=== PATIENT | male | born 1970 | race Caucasian/White ===

== ENCOUNTER 2019-10-01 08:23 | Day surgery (SDC) | payer OTHER ==
--- OUTSIDE RECORDS SUMMARY | 2019-10-01 08:25 | XMS REPORT ---
:1970 [facility] Address [address] [place] [address] [address] [place] [address] Care Team Providers Name Role Phone Unavailable Unavailable Unavailable Payers Payer Name Policy Type Policy Number Effective Date Expiration Date Problems This patient has no known problems. Allergies, Adverse Reactions, Alerts Allergy Name Allergy Status Severity Reaction(s) Onset Inactive Treating Comments Type Date Date Clinician No Known Drug DA Active U Allergies 8-15 00:00: 00 coconut FA Active MO 8-15 00:00: 00 No Known Drug DA Active U Allergies 7-17 00:00: 00 coconut DA Active MO 7-17 00:00: 00 coconut FA Active MO 03-12 00:00: 00 No Known DA Active U 2007-08 Contrast - Allergies 00:00: 00 No Known Drug DA Active U 2007-08 Allergies 09-02 00:00: 00 No Known Food DA Active U 2007-08 Allergies 09-02 00:00: 00 No Known Other DA Active U 2007-08 Allergies 09-02 00:00: 00 No Known Drug DA Active U Intolerances 04-30 00:00: 00 Medications This patient has no known medications. Results Test Description Test Time Test Comments Text Results Atomic Results Result Comments - XR SPINE 1 V SPEC LEVEL 2019-04-13 10:34:00 Patient Name: BRIANNE CARLISLE Unit No: [id number] EXAMS: CPT CODE: [id number] XR SPINE 1 V SPEC LEVEL 78941 3 LATERAL INTRAOPERATIVE VIEWS OF THE LUMBAR SPINE Image 1: Surgical instrumentation is centered at the L4-L5 level Image 2: In progress L4-L5 posterior instrumented fusion without evidence of complication. Image 3: L4-L5 posterior instrumented fusion is seen without evidence of complication. at 1034 Reported and signed by: Salomón Berger M.D. CC: Chayo Ribeiro M.D. Technologist: LEX [place], RT(R) Transcribed D/ (1034) [email or web address]: BRIANNE CARLISLE [address] [facility] PHYS: Alvaro Freitas MD : 1970 AGE: 48 SEX: M [place] [address] LOC: Y.508 A PHONE #: [phone] EXAM DATE: 04/10/2019 STATUS: ADM IN FAX #: [phone] RAD #: [id number] D/C DT PAGE 1 Signed Report Patient Name: BRIANNE CARLISLE Unit No: [id number] EXAMS: CPT CODE: [id number] XR SPINE 1 V SPEC LEVEL 63408 <Continued> Orig Print D/T: S: 04/13/2019 (1037) [facility] [place] [place] [facility] NAME: BRIANNE CARLISLE [address] [facility] [address] PHYS: Alvaro Freitas MD : 1970 AGE: 48 SEX: M [place] [address] LOC: Y.508 A PHONE #: [phone] EXAM DATE: 04/10/2019 STATUS: ADM IN FAX #: [phone] RAD #: [id number] D/C DT PAGE 2 Signed Report - XR SPINE 1 V SPEC LEVEL 2019-04-13 10:34:00 Patient Name: BRIANNE CARLISLE Unit No: [id number] EXAMS: CPT CODE: [id number] XR SPINE 1 V SPEC LEVEL 79681 3 LATERAL INTRAOPERATIVE VIEWS OF THE LUMBAR SPINE Image 1: Surgical instrumentation is centered at the L4-L5 level Image 2: In progress L4-L5 posterior instrumented fusion without evidence of complication. Image 3: L4-L5 posterior instrumented fusion is seen without evidence of complication. at 1034 Reported and signed by: Salomón Berger M.D. CC: Chayo Ribeiro M.D. Technologist: ELIZABETH RAND RT(R) Transcribed D/ (1034) [email or web address] [facility] [place] [place] [facility] NAME: BRIANNE CARLISLE [address] [facility] PHYS: Alvaro Freitas MD : 1970 AGE: 48 SEX: M [place] [address] LOC: Y.508 A PHONE #: [phone] EXAM DATE: 04/10/2019 STATUS: ADM IN FAX #: [phone] RAD #: [id number] D/C DT PAGE 1 Signed Report Patient Name: BRIANNE CARLISLE Unit No: [id number] EXAMS: CPT CODE: [id number] XR SPINE 1 V SPEC LEVEL 99091 <Continued> Orig Print D/T: S: 04/13/2019 (1037) [facility] [place] [place] [facility] NAME: BRIANNE CARLISLE [address] [facility] PHYS: Alvaro Freitas MD : 1970 AGE: 48 SEX: M [place], [place] [address] LOC: Y.508 A PHONE #: [phone] EXAM DATE: 04/10/2019 STATUS: ADM IN FAX #: [phone] RAD #: [id number] D/C DT PAGE 2 Signed Report - XR SPINE 1 V SPEC LEVEL 2019-04-13 10:34:00 Patient Name: BRIANNE CARLISLE Unit No: [id number] EXAMS: CPT CODE: [id number] XR SPINE 1 V SPEC LEVEL 17645 3 LATERAL INTRAOPERATIVE VIEWS OF THE LUMBAR SPINE Image 1: Surgical instrumentation is centered at the L4-L5 level Image 2: In progress L4-L5 posterior instrumented fusion without evidence of complication. Image 3: L4-L5 posterior instrumented fusion is seen without evidence of complication. at 1034 Reported and signed by: Salomón Berger M.D. CC: Chayo Ribeiro M.D. Technologist: ELIZABETH RAND RT(R) Transcribed D/ (1034) [email or web address] [facility] [place] [place] [facility] NAME: BRIANNE CARLISLE [address] [facility] PHYS: Alvaro Freitas MD : 1970 AGE: 48 SEX: M [place] [address] LOC: Y.508 A PHONE #: [phone] EXAM DATE: 04/10/2019 STATUS: ADM IN FAX #: [phone] RAD #: [id number] D/C DT PAGE 1 Signed Report Patient Name: BRIANNE CARLISLE Unit No: [id number] EXAMS: CPT CODE: [id number] XR SPINE 1 V SPEC LEVEL 49235 <Continued> Orig Print D/T: S: 04/13/2019 (1037) [facility] [place] [place] [facility] NAME: BRIANNE CARLISLE [address] [facility] PHYS: Alvaro Freitas MD : 1970 AGE: 48 SEX: M [place] [address] LOC: Y.508 A PHONE #: [phone] EXAM DATE: 04/10/2019 STATUS: ADM IN FAX #: [phone] RAD #: [id number] D/C DT PAGE 2 Signed Report HGB HCT 2019-04-13 07:55:00 Test Item Value Reference Range Comments HEMOGLOBIN (test code=HGB) 12.6 g/dL 10.2-14.9 HEMATOCRIT (test code=HCT) 38.3 % 31.3-44.8 HGB [id number] 07:55:00 Test Item Value Reference Range Comments HEMOGLOBIN (test code=HGB) 12.6 g/dL 10.2-14.9 HEMATOCRIT (test code=HCT) 38.3 % 31.3-44.8 HGB [id number] 07:19:00 Test Item Value Reference Range Comments HEMOGLOBIN (test code=HGB) 12.9 g/dL 08-11 CORRECTED REPORT. [place]IF[place] NURSE NAM AT [address]Previously reported result: 10.0 g/dLEdited by: DARATTT on 04/12/19:17 HEMATOCRIT (test code=HCT) 37.9 % 37 Previously reported result: 29.7 %Edited by: NATHANIEL on 04/12/19:18 HGB [id number] 07:01:00 Test Item Value Reference Range Comments HEMOGLOBIN (test code=HGB) 10.0 g/dL 08-11 HEMATOCRIT (test code=HCT) 29.7 % 37-47 BASIC METABOLIC [id number] 06:41:00 Test Item Value Reference Range Comments SODIUM (test code=NA) 138 mmol/L 136-145 POTASSIUM (test code=K) 5.1 mmol/L 3.5-5.1 CHLORIDE (test code=CL) 101.0 mmol/L 98-107 CARBON DIOXIDE (test 26.4 mmol/L 21-32 code=CO2) GLUCOSE (test code=GLU) 168 mg/dL 70-110 BLOOD UREA NITROGEN (test 12 mg/dL 7-18 code=BUN) GLOMERULAR FILTRATION RATE 88.6 >60 Unit of measure: (test code=GFR) mL/min/1.73 d0Bflkkhmbf Range:Healthy Adults >90 mL/min/1.73 m2 For Chronic Kidney Disease: Stage II Mild Decrease in GFR 60-90 Stage III Moderate Decrease in GFR 30-59 Stage IV Severe Decrease in GFR 15-29 Stage V Kidney Failure <15 CREATININE (test code=CREAT) 0.91 mg/dL 0.55-1.30 CALCIUM (test code=CA) 8.3 mg/dL 8.2-10.1 HGB [id number] 05:56:00 Test Item Value Reference Range Comments HEMOGLOBIN (test code=HGB) 14.6 g/dL 08-11 HEMATOCRIT (test code=HCT) 42.9 % 37-47 ISTAT-6+2019-04-10 13:43:00 Test Item Value Reference Range Comments ISTAT-HEMOGLOBIN (test code=HBP) 16.0 g/dL 12-16 ISTAT-HEMATOCRIT (test code=HCTP) 47 % 38-51 ISTAT-SODIUM (test code=NAP) 141 mmol/L 138-146 ISTAT-POTASSIUM (test code=KP) 4.5 mmol/L 3.5-4.9 ISTAT-CHLORIDE (test code=CLP) 101 mmol/L 98-109 ISTAT-GLUCOSE (test code=GLUP) 80 mg/dL 70-105 ISTAT-BUN (test code=BUN-P) 10 mg/dL 8-26 URINALYSIS [id number] 17:44:00 Test Item Value Reference Range Comments UA COLOR (test code=COLU) YELLOW YELLOW UA APPEARANCE (test code=APPU) CLEAR CLEAR UA GLUCOSE DIPSTICK (test code=DGLUU) NEGATIVE NEGATIVE UA BILIRUBIN DIPSTICK (test code=BILU) NEGATIVE NEGATIVE UA KETONE DIPSTICK (test code=KETU) NEGATIVE mg/dL NEGATIVE UA SPECIFIC GRAVITY (test code=SGU) 1.010 1.003-1.035 UA BLOOD DIPSTICK (test code=LUIS) 1+ NEGATIVE UA PH DIPSTICK (test code=MARY) 6.0 >6.5 UA PROTEIN DIPSTICK (test code=PROU) NEGATIVE mg/dL NEG UA UROBILINIOGEN DIPSTICK (test code=URO) 0.2 mg/dL NORM UA NITRITE DIPSTICK (test code=ZULAY) NEGATIVE NEG UA LEUKOCYTE ESTERASE DIPSTICK (test NEGATIVE NEGATIVE code=LEUU) UA WBC (test code=WBCU) <5 /HPF 0-2 UA RBC (test code=RBCU) 2-5 /HPF 0-2 UA EPITHELIAL CELLS (test code=EPIU) NONE /HPF 0-2 UA BACTERIA (test code=BACU) RARE /HPF NONE BASIC METABOLIC [id number] 17:33:00 Test Item Value Reference Range Comments SODIUM (test code=NA) 142 mmol/L 136-145 POTASSIUM (test code=K) 4.7 mmol/L 3.5-5.1 CHLORIDE (test code=CL) 103.0 mmol/L 98-107 CARBON DIOXIDE (test 29.5 mmol/L 21-32 code=CO2) GLUCOSE (test code=GLU) 105 mg/dL 70-110 BLOOD UREA NITROGEN (test 11 mg/dL 7-18 code=BUN) GLOMERULAR FILTRATION RATE 82.3 >60 Unit of measure: (test code=GFR) mL/min/1.73 [id number] Range:Healthy Adults >90 mL/min/1.73 m2 For Chronic Kidney Disease: Stage II Mild Decrease in GFR 60-90 Stage III Moderate Decrease in GFR 30-59 Stage IV Severe Decrease in GFR 15-29 Stage V Kidney Failure <15 CREATININE (test code=CREAT) 0.97 mg/dL 0.55-1.30 CALCIUM (test code=CA) 8.9 mg/dL 8.2-10.1 CBC W/AUTO [id number] 16:33:00 Test Item Value Reference Range Comments WHITE BLOOD CELL (test code=WBC) 10.6 K/mm3 5.7-10.5 RED BLOOD CELL (test code=RBC) 5.37 M/mm3 4.2-5.4 HEMOGLOBIN (test code=HGB) 16.2 g/dL 12-16 HEMATOCRIT (test code=HCT) 48.5 % 37-47 MEAN CELL VOLUME (test code=MCV) 90 fL 80-98 MEAN CELL HGB (test code=MCH) 30.2 pg 27-34 MEAN CELL HGB CONCENTRATION (test code=MCHC) 33.4 g/dL 30.8-34.1 RED CELL DISTRIBUTION WIDTH (test code=RDW) 12.6 % 11-16 PLT (test code=PLT) 229 K/mm3 130-400 MEAN PLATELET VOLUME (test code=MPV) 9.0 fL 8.9-12.1 NEUTROPHIL % (test code=NT%) 47.2 % 45-70 LYMPHOCYTE % (test code=LY%) 37.9 % 20-40 MONOCYTE % (test code=MO%) 10.3 % 3-10 EOSINOPHIL % (test code=EO%) 3.4 % 1-5 BASOPHIL % (test code=BA%) 0.9 % 0.0-1.1 NEUTROPHIL # (test code=NT#) 5.00 K/mm3 2.00-7.50 LYMPHOCYTE # (test code=LY#) 4.01 K/mm3 1.50-4.00 MONOCYTE # (test code=MO#) 1.09 K/mm3 0.2-0.8 EOSINOPHIL # (test code=EO#) 0.36 K/mm3 0.04-0.4 BASOPHIL # (test code=BA#) 0.09 K/mm3 0.02-0.10 MANUAL DIFF REQUIRED (test code=MDIFF) NO MANUAL DIFF NUCLEATED RED BLOOD CELL (test code=NRBC) 0 % 0-0 - MRI L-SPINE W/O [id number] 09:16:00 Patient Name: BRIANNE CARLISLE Unit No: [id number] EXAMS: CPT CODE: [id number] MRI L-SPINE W/O CONT 50229 DIAGNOSIS: 1. At L1-2 there is no evidence for disc bulge or herniation, bony canal or foraminal stenosis. 2. At L2-3 there is no evidence for disc bulge or herniation, bony canal or foraminal stenosis. 3. At L3-4 there is no evidence for discbulge or herniation, bony canal or foraminal stenosis. 4. At L4-5 there is 5 mm of recurrent right paracentral disc protrusion indenting the ventral thecal sac. Mild foraminal narrowing is seen. A left-sided laminectomy is present with decompression of the canal.5. At L5-S1 there is no evidence for disc bulge or herniation, bony canal or foraminal stenosis. COMMENT: COMPARISON: No prior exams available. Scans were performed in the sagittal and axial planes utilizing T1, T2 and inversion recovery images. Endplate and disc degeneration is seen at L4-5. The remaining discs are desiccated. Postsurgical change is as noted. Disc configurations are as described. Spondylitic changes are as noted. The conus is in the expected location. The description these findings assumes a normal count of 5 lumbar type vertebra. at 0916 Reported and signed by: Jose Cruz Fernandez MD CC: Chayo Ribeiro M.D. Technologist: Barbara Villaseñor(Ina) Transcribed D/ (0916) Tiago.JCL [facility] [place] [place] [facility] NAME: BRIANNE CARLISLE [address] [facility] PHYS: Alvaro Freitas MD : 1970 AGE: 48 SEX: M [place], [place] [address] LOC: Y.MRI PHONE #: [phone] EXAM DATE: 02/19/2019STATUS: REG CLI FAX #: [phone] RAD # : [id number] D/C DT PAGE1 Signed Report Patient Name: BRIANNE CARLISLE Unit No: [id number] EXAMS: CPT CODE: [id number] MRI L-SPINE W/O CONT 10107 <Continued> Orig Print D/T: S: 02/19/2019 (0919) [facility] [place] [place] [facility] NAME: BRIANNE CARLISLE [address] [facility] PHYS: Alvaro Freitas MD : 1970 AGE: 48 SEX: M [place] [address] LOC: Y.MRI PHONE #: EXAM DATE: 02/19/2019 STATUS: REG CLI FAX #: RAD #: [id number] D/C DT PAGE 2 Signed Report
--- OUTSIDE RECORDS SUMMARY | 2019-10-01 08:26 | XMS REPORT ---
:1970 Author Organization [employer] Care Team Providers Name Role Phone Jeri Puentes Provider Role Unavailable Allergies No Known Allergies Problems Problem Type Condition Code Onset Dates Condition Status Problem Impingement syndrome, shoulder, M75.42 Active left Problem Chronic pain syndrome G89.4 Active Problem Neuropathy G62.9 Active Problem CPAP (continuous positive airway Z99.89 Active pressure) dependence Problem Hypertension, unspecified type I10 Active Problem Shortness of breath R06.02 Active Problem Status post lumbar surgery Z98.890 Active Problem Tobacco use Z72.0 Active Problem Mood disorder F39 Active Problem AKOSUA (obstructive sleep apnea) G47.33 Active Problem Rash and nonspecific skin eruption R21 Active Problem History of [place] (myocardial I25.2 Active infarction) Problem Other chronic pain G89.29 Active Problem Hyperlipidemia, unspecified E78.5 Active hyperlipidemia type Problem Coronary artery disease involving I25.10 Active [place] coronary artery of [place] heart, angina presence unspecified Problem Hypertension I10 Active Problem Hyperlipidemia E78.5 Active Problem Stented coronary artery Z95.5 Active Problem Tobacco abuse counseling Z71.6 Active Problem Seasonal allergies J30.2 Active Problem Pain, joint, shoulder, left M25.512 Active Medications No Known Medications Results No Known Results Summary Purpose [employer]ClinicalWorks Submission
--- OUTSIDE RECORDS SUMMARY | 2019-10-01 08:26 | XMS REPORT ---
[...] skin eruption R21 Active Problem History of [place] (myocardial I25.2 Active infarction) Problem Other chronic pain G89.29 Active Problem Hyperlipidemia, unspecified E78.5 Active hyperlipidemia type Problem Coronary artery disease involving I25.10 Active [place] coronary artery of [place] heart, angina presence unspecified Problem Hypertension I10 Active Problem Hyperlipidemia E78.5 Active Problem Stented coronary artery Z95.5 Active Problem Tobacco abuse counseling Z71.6 Active Problem Seasonal allergies J30.2 Active Problem Pain, joint, shoulder, left M25.512 Active Medications No Known Medications Results No Known Results Summary Purpose [employer]ClinicalWorks Submission
--- OUTSIDE RECORDS SUMMARY | 2019-10-01 08:26 | XMS REPORT ---
[...] Active Problem Shortness of breath R06.02 Active Assessment Cerumen impaction H61.20 Active Problem Status post lumbar surgery Z98.890 Active Problem Tobacco use Z72.0 Active Problem Mood disorder F39 Active Problem AKOSUA (obstructive sleep apnea) G47.33 Active Problem Rash and nonspecific skin eruption R21 Active Problem History of [place] (myocardial I25.2 Active infarction) Problem Other chronic pain G89.29 Active Problem Hyperlipidemia, unspecified E78.5 Active hyperlipidemia type Problem Coronary artery disease involving I25.10 Active [place] coronary artery of [place] heart, angina presence unspecified Problem Hypertension I10 Active Problem Hyperlipidemia E78.5 Active Problem Stented coronary artery Z95.5 Active Problem Tobacco abuse counseling Z71.6 Active Problem Seasonal allergies J30.2 Active Problem Pain, joint, shoulder, left M25.512 Active Medications Medication Code Code Instructions Start End Status Dosage System Date Date Rosuvastatin [facility] 57370963060 5 MG Orally Active 1 tablet Calcium Once a day in evening ProAir HFA [facility] 11902961154 108 (90 Base) Active as directed MCG/ACT Inhalation 2 puffs every 4-6 hours as needed for SOB ProAir HFA [facility] 41655666040 108 (90 Base) Active as directed MCG/ACT Inhalation 2 puffs every 4-6 hours as needed for SOB Zyban [facility] 39721216055 150 MG Orally Active 1 tablet in Once a day the morning for smoking cessation Losartan [facility] 36700118103 50 MG Orally Active 1 tablet Potassium Once a day Wellbutrin XL [facility] 52917752509 150 MG Orally Active 1 tablet in Once a day the morning Nitroglycerin [facility] 65872053237 0.3 MG Active not defined Sublingual CoQ-10 [facility] 64211696750 50 MG Orally Active 1 capsule Four times a with a meal day Nexium [facility] 91398789680 40 MG Orally Active 1 capsule Twice a day Plavix [facility] 77560821359 75 MG Orally Active 1 tablet Once a day Aspir-Low [facility] 01127167057 81 MG Orally Active 1 tablet Once a day Piroxicam [facility] 55451317408 10 MG Orally Active 1 capsule Once a day as needed for pain; take with food Results No Known Results Summary Purpose eClinicalWorks Submission
[2019-10-01] MEDS ORDERED: CEFAZOLIN/SWI 2gm 2 GM/20 ML SYR ONE (08:56)
[2019-10-01] MEDS ORDERED: Ringers Lactate 1,000 ML IV ONE (08:56)
[2019-10-01] MEDS ORDERED: BUPIVACA 0.5%/EPI 0.0005%/PF 10 ML VIAL ONE (09:49)
[2019-10-01] MEDS ORDERED: FENTANYL CITR 100 MCG/2 ML ONE (10:02)
[2019-10-01] MEDS ORDERED: MIDAZOLAM HCL 2 MG/2 ML INJ ONE (10:02)
[2019-10-01] MEDS ORDERED: propofoL 200 MG/20 ML VIAL IV ONE (10:02)
[2019-10-01] MEDS ORDERED: LIDOCAINE 2% MPF 5 ML VIAL ONE (10:02)
--- NOTE | 2019-10-01 11:01 | P.OP ---
Preoperative diagnosis: RIGHT posterior shoulder infected epidermal cyst Postoperative diagnosis: RIGHT posterior shoulder infected epidermal cyst Primary procedure: Excisional Debridement of RIGHT posterior shoulder infected epidermal cyst Anesthesia: GETA + Local Estimated blood loss: <30cc Specimen: cultures and debridement tissue Findings: 6x5x5 cm infected ruptured epidermal cyst extening to muscle Complications: None Transferred to: Recovery Room Condition: Good
[2019-10-01] MEDS: HYDROMORPHONE HCL 1 MG/ML INJ ONE ×4 (11:12→11:47)
[2019-10-01] MEDS ORDERED: ONDANSETRON 4 MG/2 ML VIAL ONE (11:13)
[2019-10-01] MEDS ORDERED: KETOROLAC 30 MG/ML INJ ONE (11:13)
[2019-10-01] MEDS ORDERED: SODIUM HYPOCHLORITE 0.25% 473 ML ONE (11:16)
[2019-10-01] MEDS ORDERED: HYDROCODONE/APAP 7.5/325 MG TAB ONE (12:29)
[2019-10-01 14:03] VITALS: BP 142/86; TEMP 97.5; O2SAT 100
--- NOTE | 2019-10-01 21:35 | OP ---
Date of Procedure: 10/01/2019 Surgeon: Dominick Maldonado MD, Preoperative Diagnosis: Right posterior shoulder infected epidermal cyst. Postoperative Diagnosis: Right posterior shoulder infected epidermal cyst. Procedure Performed: Excisional debridement of right posterior shoulder infected epidermal cyst. Anesthesia: General endotracheal plus local with 0.5% Marcaine with epinephrine. Estimated Blood Loss: Less than 30 cc. Specimens: Cultures and debridement tissue. Findings: 6 cm x 5 cm x 5 cm infected ruptured epidermal inclusion cyst extending to the muscle. Complications: None. Disposition: Transferred to recovery room in good condition. Procedure In Detail: After informed consent was obtained, patient was brought to the operating room, prepped draped in the usual sterile fashion. After adequate anesthesia was achieved, an elliptical area of the right shoulder was incised for approximately 5 cm x 2 cm down through subcutaneous tissue s. An epidermal inclusion cyst was encountered at this point. I dissected circumferentially down ar ound this epidermal inclusion cyst, which was found to be ruptured on the inferior aspect with pus em anating. This was cultured at this time, both aerobic and anaerobic speciation. The capsule was the n removed and suctioned out until completely clear. Some sebaceous material and the sales representative wire rope s ac were sent off for pathologic examination and the sac was removed in its entirety. At this point, I irrigated the wound, which extended down to the muscle. I then achieved hemostasis with electrocau mena over the area and copiously irrigated the wound until completely clear. I then packed the wound with 0.25% Dakin solution and a dry dressing on top and a sterile dressing was placed over top. The patient tolerated procedure well without evidence complication, transferred to PACU in good conditio n. All counts were correct at end of the case. LEILANI/YEISON Voice ID: [id number] Report ID: [id number]
== END 2019-10-01 13:15 | disposition home or self-care (01) ==
LOC: OR 08:23
PROVIDERS: ATTEND Surgery
PROC: 0JBD0ZZ Excision of Right Upper Arm Subcutaneous Tissue and Fascia, Open Approach (ICD-10-PCS; principal; 2019-10-01 09:45)
DX: L72.0 Epidermal cyst (principal); I10 Essential (primary) hypertension; I25.10 Atherosclerotic heart disease of native coronary artery without angina pectoris; G47.33 Obstructive sleep apnea (adult) (pediatric); E66.9 Obesity, unspecified; Z68.42 Body mass index [BMI] 45.0-49.9, adult; F17.210 Nicotine dependence, cigarettes, uncomplicated; Z82.49 Family history of ischemic heart disease and other diseases of the circulatory system
CPT/HCPCS: 87070; 87205 ×2; 88304; 87075; 11042; 11045; J2704; J2250; J3010; J1170 ×2; J0690; J7120; J2405

== ENCOUNTER 2022-09-18 13:50 | Emergency (ER) | payer BC ==
--- OUTSIDE RECORDS SUMMARY | 2022-09-18 13:59 | XMS REPORT | Continuity of Care Document ---
:1970 Author Organization [facility] t Address [address] [place] [address] Dr. Martin. [address] [place] [address] Care Team Providers Name Role Phone Jacob De La Torre Primary Care Physician Jeri Puentes Attending Clinician Unavailable MARCIAL GODOY Attending Clinician Unavailable Caridad Attending Clinician Unavailable Alvaro Ribeiro Attending Clinician Unavailable Doctor Unassigned, [place] Attending Clinician Unavailable Krysta Rincon MD Attending Clinician KRYSTA RINCON Attending Clinician Unavailable KRYSTA RINCON Attending Clinician Unavailable 1, [facility] Sleep Lab Bed Attending Clinician Unavailable Only, [facility] Test Attending Clinician Unavailable Harjinder Luevano MD Attending Clinician Lobito Lackey DO Attending Clinician Marcial Godoy MD Attending Clinician Bartolo Saab CRNA Attending Clinician Janie Sommers MD Attending Clinician Jeri Puentes Admitting Clinician Unavailable MARCIAL GODOY Admitting Clinician Unavailable Caridad Admitting Clinician Unavailable Physician, No Primary or Family Admitting Clinician Unavailkaren Godoy MD, Marcial A Admitting Clinician Payers Payer Name Policy Type Policy Number Effective Date Expiration Date S ource [place] [id number] 2020 00:00:00 [id number] 2020 00:00:00 [place] Problems Condition Condition Condition Status Onset Resolution Last Treating Co mments Source Name Details Category Date Date Treatment Clinician Date Obesity Obesity Disease Active Univers (BMI (BMI 1-12 ity of 30-39.9) 30-39.9) 00:00: [place] 00 [facility] Branch Stented Stented Problem Active Common coronary coronary Spirit artery artery - [facility] Hypertensi Hypertensi Problem Active C ommon on on [facility] Seasonal Seasonal Problem Active Commo n allergies allergies Spir [facility] Mood Mood Problem Active Common disorder disorder [facility] Impingemen Impingemen Problem Active C ommon t t Spirit syndrome, syndrome, - [facility] I shoulder, shoulder, St left [facility] Chronic Chronic Problem Active Common pain pain Spirit syndrome syndrome - [facility] Tobacco Tobacco Problem Active Common abuse abuse Spirit counseling counseling [facility] Hyperlipid Hyperlipid Problem Active C ommon emia emia [facility] Pain, Pain, Problem Active Common joint, joint, Spirit shoulder, shoulder, - [facility] I left [facility] Neuropathy Neuropathy Problem Active C ommon [facility] Coronary Coronary Problem Active Commo n artery artery Spirit disease disease - 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 ) ) [facility] Other Other Problem Active Common chronic chronic Spirit pain pain - [facility] CPAP CPAP Problem Active Common (continuou (continuou Sp sergey s positive s positive - [facility] airway airway St pressure) pressure) [facility] dependence [facility] AK[facility] Problem Active Common (obstructi (obstructi Sp sergey ve sleep ve sleep - [facility]I apnea) apnea) [facility] Rash and Rash and Problem Active Commo n nonspecifi nonspecifi Sp sergey c skin c skin - [facility] eruption eruption [facility] Shortness Shortness Problem Active Com mon of breath of breath Spir it - [facility]I [facility] Tobacco Tobacco Problem Active Common use use Spirit - [facility] Status Status Problem Active Common post post Spirit lumbar lumbar - [facility] surgery surgery [facility] Allergies, Adverse Reactions, Alerts Allergy Allergy Status Severity Reaction(s) Onset Inactive Treating Comm ents Source Name Type Date Date Clinician No Known DA Active U [facility] [place] [facility] coconut FA Active MO [facility] 8[facility]15 [place] 00:[facility]: [facility] No Known DA Active U [facility] 815 [place] Allergie 00:00: [facility] 00 [facility] coconut FA Active MO anaphylaxis 2018-0 [facility] 8-15 [place] 00:00: [facility] 00 [facility] coconut FA Active MO 0 [facility] 7-17 [place] 00:00: [facility] 00 [facility] No Known DA Active U [facility] [place] coconut DA Active MO 2018-0 [facility] [place] No Known DA Active U 2007-08 [facility] Contrast 09-02 [place] Allergie 00:00: Orthope [facility] 00 dic [facility]ospita [facility] No Known DA Active U 2007-08 [facility] Drug 09-02 [place] Allergie 00:00: [facility]ope [facility] 00 dic [facility]ospita [facility] No Known DA Active U 2007-08 [facility] Food 09-02 [place] Allergie 00:00: [facility]ope [facility] 00 dic [facility] No Known DA Active U 2007-08 [facility] Other 09-02 [place] Allergie 00:00: Orthope s 00 dic [facility]ospita l No Known DA Active U [facility] 04-30 [place] Intolera 00:00: Orthope nces 00 dic Hospita l NO KNOWN Drug Active Univers ALLERGIE Class ity of S [place] [facility] Social History Social Habit Start Date Stop Date Quantity Comments Source Exposure to Not sure [facility] SARS-CoV-2 (event) Medica l Branch Tobacco use and 2020-09-06 2020-09-06 Never used [facility] exposure 00:00:00 00:00:00 Medical Branch Sex Ass[birth year] At [birth year] [facility] 00:00:00 00:00:00 Medical Branch Smoking Status Start Date Stop Date Source Unknown if ever smoked [facility] Current every day smoker 2020-09-06 00:00:00 Uni versity [facility] Medications Ordered Filled Start Stop Current Ordering Indication Dosage Frequency Signature Comments Components Source Medication Medication Date Date Medication? Clinician (SIG) Name Name piroxicam Yes 10mg Take 10 mg Un eric 10 mg 1-12 by mouth ity of capsule 20:21: daily. Medical Branch lovastatin Yes Take by Univ ers 10 mg 1-12 mouth at ity of tablet 20:21: bedtime. Medical Branch buPROPion Yes 150mg Take 150 Uni vers 75 mg 1-12 mg by ity of tablet 20:21: mouth once now. Medical Branch piroxicam Yes 10mg Take 10 mg Un eric 10 mg 1-12 by mouth ity of capsule 20:21: daily. Medical Branch lovastatin Yes Take by Univ ers 10 mg 1-12 mouth at ity of tablet 20:21: bedtime. Medical Branch buPROPion Yes 150mg Take 150 Uni vers 75 mg 1-12 mg by ity of tablet 20:21: mouth once now. Medical Branch piroxicam Yes 10mg Take 10 mg Un eric 10 mg 1-12 by mouth ity of capsule 20:21: daily. Medical Branch lovastatin Yes Take by Univ ers 10 mg 1-12 mouth at ity of tablet 20:21: bedtime. Medical Branch buPROPion Yes 150mg Take 150 Uni vers 75 mg 1-12 mg by ity of tablet 20:21: mouth once now. Medical Branch piroxicam Yes 10mg Take 10 mg Un eric 10 mg 1-12 by mouth ity of capsule 20:21: daily. Medical Branch lovastatin 2021-0 Yes Take by Univ ers 10 mg 1-12 mouth at ity of tablet 20:21: bedtime. Medical Branch buPROPion 0 Yes 150mg Take 150 Uni vers 75 mg 1-12 mg by ity of tablet 20:21: mouth once now. Medical Branch piroxicam 0 Yes 10mg Take 10 mg Un eric 10 mg 1-12 by mouth ity of capsule 20:21: daily. Medical Branch lovastatin 0 Yes Take by Univ ers 10 mg 1-12 mouth at ity of tablet 20:21: bedtime. Medical Branch buPROPion 0 Yes 150mg Take 150 Uni vers 75 mg 1-12 mg by ity of tablet 20:21: mouth once now. Medical Branch piroxicam 0 Yes 10mg Take 10 mg Un eric 10 mg 1-12 by mouth ity of capsule 20:21: daily. Medical Branch lovastatin 0 Yes Take by Uni vers 10 mg 1-12 mouth at ity of tablet 20:21: bedtime. Medical Branch buPROPion 0 Yes 150mg Take 150 Uni vers 75 mg 1-12 mg by ity of tablet 20:21: mouth once now. Medical Branch piroxicam 0 Yes 10mg Take 10 mg Un eric 10 mg 1-12 by mouth ity of capsule 20:21: daily. Medical Branch lovastatin 0 Yes Take by Univ ers 10 mg 1-12 mouth at ity of tablet 20:21: bedtime. Medical Branch buPROPion 2020-0 Yes 150mg Take 150 Uni vers 75 mg 1-12 mg by ity of tablet 20:21: mouth once now. Medical Branch piroxicam 0 Yes 10mg Take 10 mg Un eric 10 mg 1-12 by mouth ity of capsule 20:21: daily. Medical Branch lovastatin 0 Yes Take by Univ ers 10 mg 1-12 mouth at ity of tablet 20:21: bedtime. Medical Branch buPROPion 0 Yes 150mg Take 150 Uni vers 75 mg 1-12 mg by ity of tablet 20:21: mouth once now. Medical Branch piroxicam 0 Yes 10mg Take 10 mg Un eric 10 mg 1-12 by mouth ity of capsule 20:21: daily. Medical Branch lovastatin 0 Yes Take by Univ ers 10 mg 1-12 mouth at ity of tablet 20:21: bedtime. Medical Branch buPROPion 0 Yes 150mg Take 150 Uni vers 75 mg 1-12 mg by ity of tablet 20:21: mouth once now. Medical Branch piroxicam 0 Yes 10mg Take 10 mg Un eric 10 mg 1-12 by mouth ity of capsule 20:21: daily. Medical Branch lovastatin 0 Yes Take by Univ ers 10 mg 1-12 mouth at ity of tablet 20:21: bedtime. Medical Branch buPROPion 0 Yes 150mg Take 150 Uni vers 75 mg 1-12 mg by ity of tablet 20:21: mouth once now. Medical Branch piroxicam 2020-0 Yes 10mg Take 10 mg Un eric 10 mg 1-12 by mouth ity of capsule 20:21: daily. Medical Branch lovastatin 0 Yes Take by Univ ers 10 mg 1-12 mouth at ity of tablet 20:21: bedtime. Medical Branch buPROPion 0 Yes 150mg Take 150 Uni vers 75 mg 1-12 mg by ity of tablet 20:21: mouth once now. Medical Branch piroxicam 0 Yes 10mg Take 10 mg Un eric 10 mg 1-12 by mouth ity of capsule 20:21: daily. Medical Branch lovastatin 0 Yes Take by Univ ers 10 mg 1-12 mouth at ity of tablet 20:21: bedtime. Medical Branch buPROPion 0 Yes 150mg Take 150 Uni vers 75 mg 1-12 mg by ity of tablet 20:21: mouth once now. Medical Branch piroxicam 0 Yes 10mg Take 10 mg Un eric 10 mg 1-12 by mouth ity of capsule 20:21: daily. Medical Branch lovastatin 0 Yes Take by Univ ers 10 mg 1-12 mouth at ity of tablet 20:21: bedtime. Medical Branch buPROPion 2021-0 Yes 150mg Take 150 Uni vers 75 mg 1-12 mg by ity of tablet 20:21: mouth once now. Medical Branch piroxicam 2020-0 Yes 10mg Take 10 mg Un eric 10 mg 1-12 by mouth ity of capsule 20:21: daily. Medical Branch lovastatin 0 Yes Take by Univ ers 10 mg 1-12 mouth at ity of tablet 20:21: bedtime. Medical Branch buPROPion 2020-0 Yes 150mg Take 150 Uni vers 75 mg 1-12 mg by ity of tablet 20:21: mouth once now. Medical Branch piroxicam 2020-0 Yes 10mg Take 10 mg Un eric 10 mg 1-12 by mouth ity of capsule 20:21: daily. Medical Branch lovastatin 0 Yes Take by Univ ers 10 mg 1-12 mouth at ity of tablet 20:21: bedtime. Medical Branch buPROPion 0 Yes 150mg Take 150 Uni vers 75 mg 1-12 mg by ity of tablet 20:21: mouth once now. Medical Branch piroxicam 2020-0 Yes 10mg Take 10 mg Un eric 10 mg 1-12 by mouth ity of capsule 20:21: daily. Medical Branch lovastatin 0 Yes Take by Univ ers 10 mg 1-12 mouth at ity of tablet 20:21: bedtime. Medical Branch buPROPion 0 Yes 150mg Take 150 Uni vers 75 mg 1-12 mg by ity of tablet 20:21: mouth once now. Medical Branch piroxicam 2020-0 Yes 10mg Take 10 mg Un eric 10 mg 1-12 by mouth ity of capsule 20:21: daily. Medical Branch lovastatin 2020-0 Yes Take by Univ ers 10 mg 1-12 mouth at ity of tablet 20:21: bedtime. Medical Branch buPROPion 2020-0 Yes 150mg Take 150 Uni vers 75 mg 1-12 mg by ity of tablet 20:21: mouth once now. Medical Branch piroxicam 2020-0 Yes 10mg Take 10 mg Un eric 10 mg 1-12 by mouth ity of capsule 20:21: daily. Medical Branch lovastatin 2021-0 Yes Take by Univ ers 10 mg 1-12 mouth at ity of tablet 20:21: bedtime. Medical Branch buPROPion 0 Yes 150mg Take 150 Uni vers 75 mg 1-12 mg by ity of tablet 20:21: mouth once now. Medical Branch piroxicam 0 Yes 10mg Take 10 mg Un eric 10 mg 1-12 by mouth ity of capsule 20:21: daily. Medical Branch lovastatin 0 Yes Take by Univ ers 10 mg 1-12 mouth at ity of tablet 20:21: bedtime. Medical Branch buPROPion 0 Yes 150mg Take 150 Uni vers 75 mg 1-12 mg by ity of tablet 20:21: mouth once now. Medical Branch piroxicam 0 Yes 10mg Take 10 mg Un eric 10 mg 1-12 by mouth ity of capsule 20:21: daily. Medical Branch lovastatin Yes Take by Univ ers 10 mg 1-12 mouth at ity of tablet 20:21: bedtime. Medical Branch buPROPion 0 Yes 150mg Take 150 Uni vers 75 mg 1-12 mg by ity of tablet 20:21: mouth once now. Medical Branch piroxicam 0 Yes 10mg Take 10 mg Un eric 10 mg 1-12 by mouth ity of capsule 20:21: daily. Medical Branch lovastatin 0 Yes Take by Univ ers 10 mg 1-12 mouth at ity of tablet 20:21: bedtime. Medical Branch buPROPion 0 Yes 150mg Take 150 Uni vers 75 mg 1-12 mg by ity of tablet 20:21: mouth once now. Medical Branch piroxicam 0 Yes 10mg Take 10 mg Un eric 10 mg 1-12 by mouth ity of capsule 20:21: daily. Medical Branch lovastatin 0 Yes Take by Univ ers 10 mg 1-12 mouth at ity of tablet 20:21: bedtime. Medical Branch buPROPion 0 Yes 150mg Take 150 Uni vers 75 mg 1-12 mg by ity of tablet 20:21: mouth once now. Medical Branch piroxicam 2021-0 Yes 10mg Take 10 mg Un eric 10 mg 1-12 by mouth ity of capsule 20:21: daily. [facility] lovastatin Yes Take by [facility] ers 10 mg 1-12 mouth at ity of tablet 20:21: bedtime. [place] [facility] buPROPion Yes 150mg Take 150 Uni vers 75 mg 1-12 mg by ity of tablet 20:21: mouth once 00 now. Medical Branch lactated Yes 1000mL at 42 Univer s ringers IV 1-12 mL/hr, ity of infusion 19:45: 1,000 [place], [place] 1[place]000 [place] 00 IV Medical Infusion, Branch CONTINUOUS , Starting Sun09/07/20 at 1345, Until Discontinu ed, Routine, PACU morpHINE Yes 4mg 4 mg, Slow Uni vers injection 4 1-12 IV Push, ity of mg 19:35: Q5MIN PRN, [place] 14 2 doses, Medical Starting Branch Sun09/07/20 at 1335, Until Discontinu ed, Routine, Pain (scale 7-10), PACU FENTanyl PF Yes 25ug 25 mcg, Uni vers (SUBLIMAZE 1-12 Slow IV ity of (PF)) 19:35: Push, [place] injection 14 Q5MIN PRN, Medi felicita 25 mcg 4 doses, Branch Starting Sun09/07/20 at 1335, Until Discontinu ed, Routine, Pain (scale 4-6), PACU ondansetron Yes 4mg 4 mg, Slow Univers (ZOFRAN 1-12 IV Push, ity of (PF)) 19:35: PRN, 1 [place] injection 4 14 dose, Medical mg Starting Branch Sun09/07/20 at 1335, Until Discontinu ed, Routine, Nausea and Vomiting (N/V), PACU sodium 0 Yes PRN, Univers chloride 1-12 Starting ity of 0.9 % 19:19: Tue [place] irrigation 00 09/07/20 at Med ical solution 1319, Branch Until Discontinu ed, Intra-op ondansetron 2020- No Slow IV Un eric (ZOFRAN 1-12 01-12 Push, ONCE ity o f (PF)) 19:11: 19:49 INTRA [place] injection 00 :16 PROCEDURE, [facility] Starting Branch [facility] 09/07/20 at 1311, Until e 09/07/20 at 1349, Routine, Intra-op ondansetron 2020-0 2020- No Slow IV Un eric (ZOFRAN 09-07 Push, ONCE ity o f (PF)) 19:11: 19:49 INTRA [place] injection 00 :16 PROCEDURE, [facility] Starting Branch [facility] 09/07/20 at 1311, Until 09/07/20 at 1349, Routine, Intra-op ondansetron 2020-0 2020- No Slow IV Un eric (ZOFRAN 09-07 Push, ONCE ity o f (PF)) 19:11: 19:49 INTRA [place] injection 00 :16 PROCEDURE, [facility] Starting Branch [facility] 09/07/20 at 1311, Until e 09/07/20 at 1349, Routine, Intra-op morpHINE 2020-0 2020- No ONCE INTRA Un eric injection 09-07 PROCEDURE, ity of 19:10: 19:49 Starting [place] 00 :16 [facility] 09/07/20 at Branch 1310, Until [facility] 09/07/20 at 1349, Routine, Intra-op morpHINE 2020-0 2020- No ONCE INTRA Un eric injection 09-07 PROCEDURE, ity of 19:10: 19:49 Starting [place] 00 :16 [facility] 09/07/20 at Branch 1310, Until [facility] 09/07/20 at 1349, Routine, Intra-op morpHINE 2020-0 2020- No ONCE INTRA Un eric injection 09-07 PROCEDURE, ity of 19:10: 19:49 Starting [place] 00 :16 [facility] 09/07/20 at Branch 1310, Until [facility] 09/07/20 at 1349, Routine, Intra-op Bupivacaine 2020-0 Yes PRN, Univer s -Epinephrin 09-07 Starting ity of e 18:54: Tue [place] (MARCAINE-E 00 09/07/20 at [facility]) 1254, Branch 0.25 Until %-1:200,000 Discontinu injection ed, Routine, Intra-op ceFAZolin 2022020- No ONCE INTRA U nivers (ANCEF) 09-07 PROCEDURE, ity o f injection 18:47: 19:49 Starting [place] 00 :16 e [facility] 09/07/20 at Branch 1247, Until Sun09/07/20 at 1349, ERMIAS, Intra-op ceFAZolin 2020- No ONCE INTRA U nivers (ANCEF) 09-07 PROCEDURE, ity o f injection 18:47: 19:49 Starting [place] 00 :16 e [facility] 09/07/20 at Branch 1247, Until Sun09/07/20 at 1349, ERMIAS, Intra-op ceFAZolin 2020- No ONCE INTRA U nivers (ANCEF) 09-07 PROCEDURE, ity o f injection 18:47: 19:49 Starting [place] 00 :16 e [facility] 09/07/20 at Branch 1247, Until Sun09/07/20 at 1349, ERMIAS, Intra-op propofoL IV 2020- No Intravenou Univers infusion 09-07 s, ONCE ity of 18:33: 19:49 INTRA [place] 00 :16 PROCEDURE, Medical Starting Branch 09/07/20 at 1233, Until Sun09/07/20 at 1349, Routine, Intra-op propofoL IV 2020- No Intravenou Univers infusion 09-07 s, ONCE ity of 18:33: 19:49 INTRA [place] 00 :16 PROCEDURE, Medical Starting Branch [facility] 09/07/20 at 1233, Until Sun09/07/20 at 1349, Routine, Intra-op propofoL IV 0 2020- No Intravenou Univers infusion 09-07 s, ONCE ity of 18:33: 19:49 INTRA [place] 00 :16 PROCEDURE, Medical Starting Branch [facility] 09/07/20 at 1233, Until Sun09/07/20 at 1349, Routine, Intra-op FENTanyl PF 2020- No Intravenou Univers (SUBLIMAZE 09-07 s, ONCE ity o f (PF)) 18:32: 19:49 INTRA [place] injection 00 :16 PROCEDURE, Medi [facility] Starting Branch Sun09/07/20 at 1232, Until 09/07/20 at 1349, Routine, Intra-op lidocaine 2020-2020- No ONCE INTRA U nivers 1% 09-07 PROCEDURE, ity of (XYLOCAINE) 18:32: 19:49 Starting [place] 100 mg/10 00 :16 Tue Medical mL (1 %) 09/07/20 at Branc h injection 1232, Until 09/07/20 at 1349, Routine, Intra-op FENTanyl PF 2020- No Intravenou Univers (SUBLIMAZE 09-07 s, ONCE ity o f (PF)) 18:32: 19:49 INTRA [place] injection 00 :16 PROCEDURE, Medi felicita Starting Branch e 09/07/20 at 1232, Until Sun09/07/20 at 1349, Routine, Intra-op lidocaine 2020-2020- No ONCE INTRA U nivers 1% 09-07 PROCEDURE, ity of (XYLOCAINE) 18:32: 19:49 Starting [place] 100 mg/10 00 :16 Tue Medical mL (1 %) 09/07/20 at Branc h injection 1232, Until 09/07/20 at 1349, Routine, Intra-op FENTanyl PF 2020- No Intravenou Univers (SUBLIMAZE 09-07 s, ONCE ity o f (PF)) 18:32: 19:49 INTRA [place] injection 00 :16 PROCEDURE, Medi felicita Starting Branch e 09/07/20 at 1232, Until Sun09/07/20 at 1349, Routine, Intra-op lidocaine 2020- No ONCE INTRA U nivers 1% 09-07 PROCEDURE, ity of (XYLOCAINE) 18:32: 19:49 Starting [place] 100 mg/10 00 :16 Tue Medical mL (1 %) 09/07/20 at Branc h injection 1232, Until e 09/07/20 at 1349, Routine, Intra-op lactated 2020-2020- No IV Univers ringers IV 09-07 Infusion, ity of infusion 18:28: 19:49 CONTINUOUS [place] 00 :16 PRN, Medical Starting Branch e 09/07/20 at 1228, Until Sun09/07/20 at 1349, Routine, Intra-op midazolam 2020-0 2020- No IV Push, Uni vers (VERSED) 09-07 ONCE INTRA ity of injection 18:28: 19:49 PROCEDURE, [place] 00 :[address] [facility] 09/07/20 at 1228, Until Sun09/07/20 at 1349, Routine, Intra-op lactated 2020-0 202- No IV Univers ringers IV 09-07 Infusion, ity of infusion 18:28: 19:49 [place]UOUS [place] 00 :16 PRN, [facility] 09/07/20 at 1228, Until Sun09/07/20 at 1349, Routine, Intra-op midazolam 2020-0 2020- No IV Push, Uni vers (VERSED) 09-07 ONCE INTRA ity of injection 18:28: 19:49 PROCEDURE, [place] 00 :[address] [facility] 09/07/20 at 1228, Until Sun09/07/20 at 1349, Routine, Intra-op lactated 2020-0 2020- No IV Univers ringers IV 09-07 Infusion, ity of infusion 18:28: 19:49 [place]UOUS [place] 00 :16 PRN, [facility] 09/07/20 at 1228, Until Sun09/07/20 at 1349, Routine, Intra-op midazolam 2020-0 202- No IV Push, Uni vers (VERSED) 09-07 ONCE INTRA ity of injection 18:28: 19:49 PROCEDURE, [place] 00 :[address] [facility] 09/07/20 at 1228, Until Sun09/07/20 at 1349, Routine, Intra-op piroxicam Yes 10mg Take 10 mg Un eric 10 mg 1-12 by mouth ity of capsule 14:21: daily. [place] [facility] lovastatin Yes Take by Univ ers 10 mg 1-12 mouth at ity of tablet 14:21: bedtime. [place] [facility] buPROPion Yes 150mg Take 150 Uni vers 75 mg 1-12 mg by ity of tablet 14:21: mouth once now. [facility] Piroxicam Piroxicam 2020- No Jeri 1 capsule Common 09-17 Mill[place] as needed Spir it 00:00 for pain; - CHI :00 take with [facility] Vital Signs Vital Name Observation Time Observation Value Comments Source Systolic blood 2021-02-23 20:01:00 102 mm[Hg] Univer sity of pressure [facility] Diastolic blood 2021-02-23 20:01:00 66 mm[Hg] Unive rsity of [facility] Heart rate 2021-02-23 20:01:00 68 /min Universi ty of [facility] Body temperature 2021-02-23 20:01:00 36.67 Agnes Univ ersity of [facility] Respiratory rate 2021-02-23 20:01:00 18 /min Univ ersity of [facility] Body height 2021-02-23 20:01:00 185.4 cm Universi ty of [facility] Body weight 2021-02-23 20:01:00 123.378 kg Universi ty of [place] [facility] BMI 2021-02-23 20:01:00 35.89 kg/m2 Universi ty of [facility] Oxygen saturation in 2021-02-23 20:01:00 97 /min University of Arterial blood by [facility] Pulse oximetry Branch Systolic blood 2021-01-05 19:18:00 114 mm[Hg] Univer sity of [facility] Diastolic blood 2021-01-05 19:18:00 76 mm[Hg] Unive rsity of [facility] Heart rate 2021-01-05 19:18:00 68 /min Universi ty of [facility] Branch Respiratory rate 2021-01-05 19:18:00 19 /min Univ ersity of [facility] Body height 2021-01-05 19:18:00 185.4 cm Universi ty of [facility] Body weight 2021-01-05 19:18:00 118.842 kg Universi ty of [facility] BMI 2021-01-05 19:18:00 34.57 kg/m2 Universi ty of [facility] Systolic blood 2020-11-03 19:03:00 122 mm[Hg] Univer sity of pressure [facility] Diastolic blood 2020-11-03 19:03:00 83 mm[Hg] Unive rsity of pressure [facility] Heart rate 2020-11-03 19:03:00 71 /min [facility]i ty [facility] [place] [facility] Respiratory rate 2020-11-03 19:03:00 19 /min [facility] Body height 2020-11-03 19:03:00 185.4 cm Universi ty of [facility] Body weight 2020-11-03 19:03:00 117.482 kg Universi ty of [place] [facility] BMI 2020-11-03 19:03:00 34.17 kg/m2 Universi ty of [facility] Branch Systolic blood 2020-09-07 20:05:00 136 mm[Hg] Univer sity of pressure [facility] Diastolic blood 2020-09-07 20:05:00 84 mm[Hg] Unive rsity of [facility] Heart rate 2020-09-07 20:00:00 85 /min Universi ty of [facility] Oxygen saturation in 2020-09-07 20:00:00 73 /min [facility] Arterial blood by [facility] Pulse oximetry [place] Body temperature 2020-09-07 19:43:00 36.67 [place]nes [facility] Respiratory rate 2020-09-07 17:47:00 18 /min [facility] Body height 2020-09-06 22:00:00 185.4 cm [facility] [place] [facility] Body weight 2020-09-06 22:00:00 119.75 kg [facility] ty [facility] [place] [facility] BMI 2020-09-06 22:00:00 34.83 kg/m2 Universi ty of [facility] Procedures Procedure Date / Time Performing Clinician Source Performed DME/SUPPLY JUSTIFICATION 2021-06-08 05:01:00 Doctor Unassigned, [facility] DME/SUPPLY JUSTIFICATION 2021-03-30 05:01:00 Doctor Unassigned, [facility] DME/SUPPLY JUSTIFICATION 2021-02-24 05:01:00 Doctor Angelitassdavid, [facility] SLEEP STUDY DATA REPORT 2021-01-26 05:01:00 Doctor Unassdavid [facility] Name [facility] SLEEP STUDY DATA REPORT 2020-11-23 05:01:00 Doctor Unassdavid [facility] INSURANCE CORRESPONDENCE 2020-11-04 06:01:00 Doctor Unassigned, [facility] INTUBATION 2020-09-07 18:59:51 Natasha Elizabeth Whitethorn o [facility] NO SHOW OR MISSED 2020-09-06 16:05:14 Doctor Unassigned, [facility] APPOINTMENT POLICY [facility] ACKNOWLEDGEMENT [facility] PATIENT FINANCIAL 2020-09-06 16:04:55 Doctor Unassigned, Un [facility] POLICY [facility] CONSENT/REFUSAL FOR 2020-09-06 16:04:35 Doctor Unassigned, [facility] DIAGNOSIS AND TREATMENT [facility] ASSIGNMENT OF BENEFITS 2020-09-06 16:04:21 Doctor Unassigned, Un [facility] CONSENT/REFUSAL FOR 2020-09-06 16:03:08 Doctor Unassigned, [facility] DIAGNOSIS AND TREATMENT [facility] ASSIGNMENT OF BENEFITS 2020-09-06 16:02:49 Doctor Unassigned, [facility] DSU PRE-OP 2020-09-02 06:01:00 Doctor Unassigned, [facility] Encounters Start End Encounter Admission Attending Care Care Encounter Source Date/Time Date/Time Type Type Clinicians Facility Department ID 2021-09-21 Outpatient Deloris [facility] [id number] Common 12:07:34 Jeri Petersen23 [facility] 2021-06-25 Outpatient Ina GODOY [facility] NYLA [id number] [facility] 16:25:23 MARCIAL [facility] [place] [facility] 2022-09-18 2022-09-18 Outpatient Oz AOBONNIE AOSM [id number] Lisbeth 00:00:00 00:00:00 Demarcus [id number] [facility] ope dic Sports Medicin e 2021-06-13 2021-06-13 Outpatient PAZ Ribeiro [id number] [facility] 07:00:00 07:00:00 Alvaro [address] [place] [facility] 2021-06-13 2021-06-13 Outpatient PAZ Angulo RADI Y00 [id number] [facility] 07:00:00 07:00:00 Alvaro 34 [facility] 2021-06-08 2021-06-08 Orders Doctor JANIE 1.2.840.114 [id number] Univers 00:00:00 00:00:00 Only Unassigned, SHIRLEY 350.1.13.10 [facility] 4.2.7.2.686 Michael as [phone] [address] 2021-03-30 2021-03-30 Orders Doctor JANIE 1.2.840.114 [id number] Univers 00:00:00 00:00:00 Only Unassigned, SHIRLEY 350.1.13.10 [facility] 4.2.7.2.686 Michael as [phone] [address] 2021-02-24 2021-02-24 Orders Doctor JANIE 1.2.840.114 [id number] Univers 00:00:00 00:00:00 Only Unassigned, SHIRLEY 350.1.13.10 [facility] 4.2.7.2.686 Michael as [phone] [address] 2021-02-23 2021-02-23 Office Suni [facility] 1.2.204.594 [id number] Univers 14:52:15 15:26:22 Visit Krysta Oates 350.1.13.10 ity [facility] [place] [phone] [address] 2021-02-23 2021-02-23 Outpatient R KRYSTA RINCON [facility] [id number] Univers 15:00:00 15:00:00 KRYSTA RINCON [facility] 2021-01-26 2021-01-26 Outpatient R KRYSTA RINCON [facility] [id number] Univers 19:30:00 19:30:00 KRYSTA RINCON [facility] 2021-01-26 2021-01-26 Delivery Driver/Customer Service 1, [facility] Sleep Lab Bed [facility] 1. 2.840.114 [id number] Univers 14:22:11 16:52:11 Visit Krysta Rincon 350.1.13. 10 [place] 4.2.7.2.686 [facility] [id number] [facility] 193 Branch 2021-01-26 2021-01-26 Orders Doctor JANIE 1.2.840.114 [id number] Univers 00:00:00 00:00:00 Only Unassigned, SHIRLEY 350.1.13.10 [facility] 4.2.7.2.686 Michael as [phone] [facility] 009 Branch 2021-01-25 2021-01-25 Laboratory Only, Adc Test [facility] 1.2.840. 114 [id number] Univers 07:53:16 08:08:16 Only Harjinder Luevano 350.1.13.10 [place] 4.2.7.2.686 [facility] [phone] [facility] 353 Branch 2021-01-25 2021-01-25 Outpatient R [facility] [id number] Univers 08:00:00 08:00:00 ity of [facility] 2021-01-12 2021-01-12 Telephone Suni [facility] 1.2.840.114 [id number] Univers 00:00:00 00:00:00 Krysta Oates 350.1.13.10 [place] [phone] [address] 2021-01-05 2021-01-05 Office Suni [facility] 1.2.312.786 [id number] Univers 13:48:47 14:32:57 Visit Krysta Oates 350.1.13.10 [place] [phone] [address] 2021-01-05 2021-01-05 Outpatient R KRYSTA RINCON [facility] [id number] Univers 14:30:00 14:30:00 KRYSTA RINCON ity [facility] 2020-11-23 2020-11-23 Outpatient R KRYSTA RINCON [facility] [id number] Univers 19:30:00 19:30:00 KRYSTA RINCON ity of [facility] 2020-11-23 2020-11-23 Delivery Driver/Customer Service 1, [facility] Sleep Lab Bed [facility] 1. 2.840.114 [id number] Univers 14:08:19 16:38:19 Visit Krysta Rincon 350.1.13. 10 [place] 4.2.7.2.686 [facility] [phone] [facility] 193 Branch 2020-11-23 2020-11-23 Orders Doctor JANIE 1.2.840.114 [id number] Univers 00:00:00 00:00:00 Only Unassigned, SHIRLEY 350.1.13.10 [facility] 4.2.7.2.686 Michael as [phone] [facility] 009 Branch 2020-11-19 2020-11-19 Laboratory Only, [facility] Test [facility] 1.2.840. 114 [id number] Univers 08:06:26 08:21:26 Only Harjinder Luevano 350.1.13.10 [place] 4.2.7.2.686 [facility] [id number] [facility] 353 Branch 2020-11-19 2020-11-19 Outpatient R [facility] [id number] Univers 08:15:00 08:15:00 ity of [facility] 2020-11-09 2020-11-09 Patient Ziyad [facility] 1.2.840.114 [id number] Univers 00:00:00 00:00:00 Outreach Lobito PATRICK 350.1.13.10 i ty of [facility] [place]2.7.2.[place] [facility] [id number] Vt dical 388 Branch 2020-11-04 2020-11-04 Orders Doctor JANIE 1.2.840.114 [id number] Univers 00:00:00 00:00:00 Only Unassigned, SHIRLEY 350.1.13.10 [facility] 4.2.7.2.686 Michael as [phone] [facility] 009 Branch 2020-11-03 2020-11-03 Outpatient R KRYSTA RINCON [facility] [id number] Univers 13:30:00 13:30:00 KRYSTA RINCON ity [facility] 2020-11-03 2020-11-03 Office Atulluana [facility] 1.2.285.744 [id number] Univers 12:49:15 13:19:15 Visit Krysta Oates 350.1.13.10 [place] [phone] Vt dical [facility] 085 Branch [facility] 2020-09-07 2020-09-07 [facility] 1.2.355.300 [id number] Univers 10:30:00 14:17:00 Encounter Marcial Oates 350.1.13.10 [place] [id number] [facility] 071 Branch 2020-09-07 2020-09-07 Anesthesia Batrolo Saab [facility] 1.2.840.11 [id number] Univers 12:28:00 13:49:00 Janie Sommers 350.1.13.10 [place] [phone] [facility] 020 Branch 2020-09-06 2020-09-06 Laboratory Only, Adc Test [facility] 1.2.840. 114 [id number] Univers 10:06:22 10:21:22 Only Marcial Godoy 350.1.13.10 [place].686 [place] [id number] [facility] 353 Branch 2020-09-06 2020-09-06 Outpatient R WALT [facility] [id number] Univers 10:15:00 10:15:00 MARCIAL donaldson of [facility] 2020-02-23 2020-02-23 Outpatient Ted Gomes [id number] Common 11:16:00 11:16:00 [facility] 2020-02-09 2020-02-09 Outpatient Ted Gomes [id number] Common 09:08:00 09:08:[address] [facility] 2020-02-06 2020-02-06 Outpatient [facility] [id number] Common 14:22:00 14:22:[address] [facility] 2020-01-21 2020-01-21 Outpatient [facility] [id number] Common 10:28:00 10:28:[address] [facility] 2020-01-13 2020-01-13 Outpatient [facility] [id number] Common 12:48:00 12:48:[address] [facility] 2019-12-02 2019-12-02 Outpatient [facility] [id number] Common 13:15:00 13:15:[address] [facility] 2019-09-25 2019-09-25 Outpatient [facility] [id number] Common 15:00:00 15:00:[address] [facility] 2019-09-02 2019-09-02 Outpatient [facility] [id number] Common 13:00:00 13:00:[address] [facility] 2019-06-08 2019-06-08 Outpatient [facility] [id number] Common 12:23:00 12:23:[address] [facility] 2019-06-05 2019-06-05 Outpatient [facility] [id number] Common 13:20:00 13:20:[address] [facility] 2018-12-21 2018-12-21 Outpatient [facility] [id number] Common 16:28:00 16:28:[address] [facility] 2018-12-20 2018-12-20 Outpatient [facility] [id number] Common 15:00:00 15:00:[address] [facility] 2018-11-14 2018-11-14 Outpatient Ted Jeant [id number] Common 11:30:00 11:30:[address] [facility] [address] [facility] 2009-04-14 2009-04-14 Outpatient [facility] [id number] Univers 00:00:00 12:11:00 6 [facility] Results Test Test Test Results Result Source Description Time Comments Comments - MRI L-SPINE 2021-05- W/O CONT 18 08:17:00 [facility] : 1970 Sex: M Patient Name: BRIANNE CARLISLE Unit No: [id number] EXAMS: CPT CODE: [id number] MRI L-SPINE W/O CONT 01480 DIAGNOSIS: 1. At L1-2 there is no evidence for disc bulge or herniation, bony canal or foraminal stenosis. Comparison is made with the previous examination of February 19, 2019 2. At L2-3 there is a slight retrolisthesis and associated disc bulging with mild right foraminal narrowing without left-sided stenosis. Mild narrowing of the central canal is seen. 3. At L3-4 there is a mild retrolisthesis and associated disc bulging with mild foraminal narrowing. Mild central canal stenosis is present with facet and ligamentum flavum hypertrophic and degenerative change. 4. At L4-5 the patient is status post discectomy and graft. On series 600 image 26 there is asymmetric intermediate signal in the inferior aspect of the right neural foramen which could represent postsurgical scarring or bone graft. If further evaluation is clinically indicated CT is recommended. Mild right foraminal narrowing is present without left-sided stenosis. There is posterior epidural fibrosis and right-sided perineural fibrosis. Decompression of the canal has been performed. 5. At L5-S1 there is no evidence for disc bulge or herniation, bony canal or foraminal stenosis. Asymmetric right facet degeneration is present. COMMENT: COMPARISON: February 19, 2019 Scans were performed in the sagittal and axial planes utilizing T1, T2 and inversion recovery images. Postsurgical change is present at L4-5. Disc configurations are as described. Spondylitic changes are as noted. The conus is in the expected location. The description of the levels of these findings is consistent with the prior exam. at 0817 Reported and signed by: Jose Cruz Fernandez MD CC: Chayo Ribeiro M.D. Technologist: EMMANUEL RAMIREZ RT(R) Transcribed D/ (0817) AmanJCL [facility] NAME: BRIANNE CARLISLE [address] [facility] PHYS: Alvaro Freitas MD : 1970 AGE: 51 SEX: M [place] [address] LOC: Y.MRI PHONE #: [phone] EXAM DATE: 06/13/2021 STATUS: REG CLI FAX #: [phone] RAD #: [id number] D/C DT PAGE 1 Signed Report Patient Name: BRIANNE CARLISLE Unit No: [id number] EXAMS: CPT CODE: [id number] MRI L-SPINE W/O CONT 56524 (Continued) Orig Print D/T: S: 06/13/2021 (0820) [facility] NAME: BRIANNE CARLISLE [address] [facility] PHYS: Alvaro Freitas MD : 1970 AGE: 51 SEX: M [place] [address] LOC: Y.MRI PHONE #: [phone] EXAM DATE: 06/13/2021 STATUS: REG CLI FAX #: [phone] RAD #: [id number] D/C DT PAGE 2 Signed Report Intubation 2020-08- Natasha Elizabeth, IT NETWORK ENGINEER ? ? [place] [address] 09/07/2020 ?1:00 [place] [facility] 18:59:51 PMIntubationDate/Time: Br anch 09/07/2020 12:35 PMUrgency: elective Airway not difficult General Information and Staff Patient location during procedure: ORResident/IT NETWORK ENGINEER: Natasha Elizabeth CRNAPerformed: resident/IT NETWORK ENGINEER Indications and Patient ConditionIndications for airway management: anesthesia and airway protectionSpontaneous Ventilation: absentSedation level: deep Final Airway DetailsFinal airway type: supraglottic airway Successful airway: Size 5Airway Seal Pressure (cm H2O): 20 Additional CommentsEasy igel 5 placed no trauma, teeth as in preop Intubation 2020-08- Natasha Elizabeth IT NETWORK ENGINEER ? ? [place] [address] 09/07/2020 ?1:00 [place] [facility] 18:59:51 PMIntubationDate/Time: Br anch 09/07/2020 12:35 PMUrgency: elective Airway not difficult General Information and Staff Patient location during procedure: ORResident/IT NETWORK ENGINEER: Natasha Elizabeth CRNAPerformed: resident/IT NETWORK ENGINEER Indications and Patient ConditionIndications for airway management: anesthesia and airway protectionSpontaneous Ventilation: absentSedation level: deep Final Airway DetailsFinal airway type: supraglottic airway Successful airway: Size 5Airway Seal Pressure (cm H2O): 20 Additional CommentsEasy igel 5 placed no trauma, teeth as in preop Intubation 2020-08- Natasha Elizabeth IT NETWORK ENGINEER ? ? [place] [address] 09/07/2020 ?1:00 [place] [facility] 18:59:51 PMIntubationDate/Time: Br anch 09/07/2020 12:35 PMUrgency: elective Airway not difficult General Information and Staff Patient location during procedure: ORResident/IT NETWORK ENGINEER: Natasha Elizabeth CRNAPerformed: resident/IT NETWORK ENGINEER Indications and Patient ConditionIndications for airway management: anesthesia and airway protectionSpontaneous Ventilation: absentSedation level: deep Final Airway DetailsFinal airway type: supraglottic airway Successful airway: Size 5Airway Seal Pressure (cm H2O): 20 Additional CommentsEasy igel 5 placed no trauma, teeth as in preop - XR SPINE 1 V 2019-03- Patient Name: SPEC LEVEL 18 BRIANNE CARLISLE Unit 10:34:00 No: [id number] EXAMS: CPT CODE: [id number] XR SPINE 1 V SPEC LEVEL 26199 3 LATERAL INTRAOPERATIVE VIEWS OF THE LUMBAR SPINE Image 1: Surgical instrumentation is centered at the L4-L5 level Image 2: In progress L4-L5 posterior instrumented fusion without evidence of complication. Image 3: L4-L5 posterior instrumented fusion is seen without evidence of complication. at 1034 Reported and signed by: Salomón Berger M.D. CC: Chayo Ribeiro M.D. Technologist: RT GRETTA(R) Transcribed D/ (1034) tLUZ [facility] NAME: BRIANNE CARLISLE [address] [facility] PHYS: Alvaro Freitas MD : 1970 AGE: 48 SEX: M [place], [place] [address] LOC: Y.508 A PHONE #: [phone] EXAM DATE: 04/10/2019 STATUS: ADM IN FAX #: [phone] RAD #: [id number] D/C DT PAGE 1 Signed Report Patient Name: BRIANNE CARLISLE Unit No: [id number] EXAMS: CPT CODE: [id number] XR SPINE 1 V SPEC LEVEL 07667 (Continued) Orig Print D/T: S: 04/13/2019 (1037) [facility] NAME: BRIANNE CARLISLE [address] [facility] PHYS: Alvaro Freitas MD : 1970 AGE: 48 SEX: M [place], [place] [address] LOC: Y.508 A PHONE #: [phone] EXAM DATE: 04/10/2019 STATUS: ADM IN FAX #: [phone] RAD #: [id number] D/C DT PAGE 2 Signed Report - XR SPINE 1 V 2019-03- Patient Name: SPEC LEVEL 18 BRIANNE CARLISLE Unit 10:34:00 No: [id number] EXAMS: CPT CODE: [id number] XR SPINE 1 V SPEC LEVEL 04335 3 LATERAL INTRAOPERATIVE VIEWS OF THE LUMBAR SPINE Image 1: Surgical instrumentation is centered at the L4-L5 level Image 2: In progress L4-L5 posterior instrumented fusion without evidence of complication. Image 3: L4-L5 posterior instrumented fusion is seen without evidence of complication. at 1034 Reported and signed by: Salomón Berger M.D. CC: Chayo Ribeiro M.D. Technologist: ELIZABETH RAND RT(R) Transcribed D/ (1034) Al [facility] NAME: BRIANNE CARLISLE [address] [facility] PHYS: Alvaro Freitas MD : 1970 AGE: 48 SEX: M [place] [address] LOC: Y.508 A PHONE #: [phone] EXAM DATE: 04/10/2019 STATUS: ADM IN FAX #: [phone] RAD #: [id number] D/C DT PAGE 1 Signed Report Patient Name: BRIANNE CARLISLE Unit No: [id number] EXAMS: CPT CODE: [id number] XR SPINE 1 V SPEC LEVEL 97021 (Continued) Orig Print D/T: S: 04/13/2019 (1037) [facility] NAME: BRIANNE CARLISLE [address] [facility] PHYS: Alvaro Freitas MD : 1970 AGE: 48 SEX: M [place], [place] [address] LOC: Y.508 A PHONE #: [phone] EXAM DATE: 04/10/2019 STATUS: ADM IN FAX #: [phone] RAD #: [id number] D/C DT PAGE 2 Signed Report - XR SPINE 1 V 2019-03- Patient Name: SPEC LEVEL 18 BRIANNE CARLISLE Unit 10:34:00 No: [id number] EXAMS: CPT CODE: [id number] XR SPINE 1 V SPEC LEVEL 40784 3 LATERAL INTRAOPERATIVE VIEWS OF THE LUMBAR SPINE Image 1: Surgical instrumentation is centered at the L4-L5 level Image 2: In progress L4-L5 posterior instrumented fusion without evidence of complication. Image 3: L4-L5 posterior instrumented fusion is seen without evidence of complication. at 1034 Reported and signed by: Salomón Berger M.D. CC: Chayo Ribeiro M.D. Technologist: ELIZABETH RAND RT(R) Transcribed D/ (1034) [email or web address].J [facility] NAME: BRIANNE CARLISLE [address] [facility] PHYS: Alvaro Freitas MD : 1970 AGE: 48 SEX: M [place] [address] LOC: Y.508 A PHONE #: [phone] EXAM DATE: 04/10/2019 STATUS: ADM IN FAX #: [phone] RAD #: [id number] D/C DT PAGE 1 Signed Report Patient Name: BRIANNE CARLISLE Unit No: [id number] EXAMS: CPT CODE: [id number] XR SPINE 1 V SPEC LEVEL 55353 (Continued) Orig Print D/T: S: 04/13/2019 (1037) [facility] NAME: BRIANNE CARLISLE [address] [facility] PHYS: Alvaro Freitas MD : 1970 AGE: 48 SEX: M [place] [address] LOC: Y.508 A PHONE #: [phone] EXAM DATE: 04/10/2019 STATUS: ADM IN FAX #: [phone] RAD #: [id number] D/C DT PAGE 2 Signed Report HGB HCT 2019-04-13 07:55:00 Test Item Value Reference Range Interpretation Comme nts HEMOGLOBIN (test code = HGB) 12.6 g/dL 10.2-14.9 HEMATOCRIT (test code = HCT) 38.3 % 31.3-44.8 HGB [id number] 07:55:00 Test Item Value Reference Range Interpretation Comments HEMOGLOBIN (test code = HGB) 12.6 g/dL 10.2-14.9 N HEMATOCRIT (test code = HCT) 38.3 % 31.3-44.8 N HGB [id number] 07:19:00 Test Item Value Reference Range Interpretation Comments HEMOGLOBIN (test code 12.9 g/dL 12-16 N CORREC MARCIAL REPORT. = HGB) NOTIFIED NURSE NAM AT [address]Previous ly reported result : 10.0 g/dLEdited by: F.[email or web address] on 04/12/19:07 HEMATOCRIT (test code 37.9 % 37-47 N Previo usly reported = HCT) result: 29.7 %E dited by: F.[email or web address] o n 04/12/19:18 HGB [id number] 07:01:00 Test Item Value Reference Range Interpretation Comments HEMOGLOBIN (test code = HGB) 10.0 g/dL 12-16 L HEMATOCRIT (test code = HCT) 29.7 % 37-47 L BASIC METABOLIC [id number] 06:41:00 Test Item Value Reference Range Interpretation Comments SODIUM (test code = 138 mmol/L 136-145 N NA) POTASSIUM (test code = 5.1 mmol/L 3.5-5.1 N K) CHLORIDE (test code = 101.0 mmol/L 98-107 N CL) CARBON DIOXIDE (test 26.4 mmol/L 21-32 N code = CO2) GLUCOSE (test code = 168 mg/dL 70-110 H GLU) BLOOD UREA NITROGEN 12 mg/dL 7-18 N (test code = BUN) GLOMERULAR FILTRATION 88.6 >60 Unit o f measure: RATE (test code = GFR) mL/mi n/1.73 [id number] Range:Healthy Adults >90 mL/min/1.73 m2 For Chronic Kidney Disease: Stage II Mild Decrease i n GFR 60-90 Stage III Moderate Decrea se in GFR 30-59 St age IV Severe Decre ase in GFR 15-29 St age V Kidney Failur e <15 CREATININE (test code 0.91 mg/dL 0.55-1.30 N = CREAT) CALCIUM (test code = 8.3 mg/dL 8.2-10.1 N CA) HGB [id number] 05:56:00 Test Item Value Reference Range Interpretation Comments HEMOGLOBIN (test code = HGB) 14.6 g/dL 12-16 N HEMATOCRIT (test code = HCT) 42.9 % 37-47 N [id number] 13:43:00 Test Item Value Reference Range Interpretation Comments ISTAT-HEMOGLOBIN (test code = HBP) 16.0 g/dL 12-16 N ISTAT-HEMATOCRIT (test code = 47 % 38-51 N HCTP) ISTAT-SODIUM (test code = NAP) 141 mmol/L 138-146 N ISTAT-POTASSIUM (test code = KP) 4.5 mmol/L 3.5-4.9 N ISTAT-CHLORIDE (test code = CLP) 101 mmol/L 98-109 N ISTAT-GLUCOSE (test code = GLUP) 80 mg/dL 70-105 N ISTAT-BUN (test code = BUN-P) 10 mg/dL 8-26 N URINALYSIS [id number] 17:44:00 Test Item Value Reference Range Interpretation Comments UA COLOR (test code = COLU) YELLOW YELLOW UA APPEARANCE (test code = CLEAR CLEAR APPU) UA GLUCOSE DIPSTICK (test code NEGATIVE NEGATIVE = DGLUU) UA BILIRUBIN DIPSTICK (test NEGATIVE NEGATIVE code = BILU) UA KETONE DIPSTICK (test code NEGATIVE mg/dL NEGATIVE = KETU) UA SPECIFIC GRAVITY (test code 1.010 1.003-1.035 = SGU) UA BLOOD DIPSTICK (test code = 1+ NEGATIVE A LUIS) UA PH DIPSTICK (test code = 6.0 >6.5 MARY) UA PROTEIN DIPSTICK (test code NEGATIVE mg/dL NEG = PROU) UA UROBILINIOGEN DIPSTICK 0.2 mg/dL NORM (test code = URO) UA NITRITE DIPSTICK (test code NEGATIVE NEG = ZULAY) UA LEUKOCYTE ESTERASE DIPSTICK NEGATIVE NEGATIVE (test code = LEUU) UA WBC (test code = WBCU) <5 /HPF 0-2 UA RBC (test code = RBCU) 2-5 /HPF 0-2 A UA EPITHELIAL CELLS (test code NONE /HPF 0-2 = EPIU) UA BACTERIA (test code = BACU) RARE /HPF NONE BASIC METABOLIC [id number] 17:33:00 Test Item Value Reference Range Interpretation Comments SODIUM (test code = 142 mmol/L 136-145 N NA) POTASSIUM (test code = 4.7 mmol/L 3.5-5.1 N K) CHLORIDE (test code = 103.0 mmol/L 98-107 N CL) CARBON DIOXIDE (test 29.5 mmol/L 21-32 N code = CO2) GLUCOSE (test code = 105 mg/dL 70-110 N GLU) BLOOD UREA NITROGEN 11 mg/dL 7-18 N (test code = BUN) GLOMERULAR FILTRATION 82.3 >60 Unit o f measure: RATE (test code = GFR) mL/mi n/1.73 [id number] Range:Healthy Adults >90 mL/min/1.73 m2 For Chronic Kidney Disease: Stage II Mild Decrease i n GFR 60-90 Stage III Moderate Decrea se in GFR 30-59 St age IV Severe Decre ase in GFR 15-29 St age V Kidney Failur e <15 CREATININE (test code 0.97 mg/dL 0.55-1.30 N = CREAT) CALCIUM (test code = 8.9 mg/dL 8.2-10.1 N CA) CBC W/AUTO [id number] 16:33:00 Test Item Value Reference Range Interpretation Comments WHITE BLOOD CELL (test code = WBC) 10.6 K/mm3 5.7-10.5 H RED BLOOD CELL (test code = RBC) 5.37 M/mm3 4.2-5.4 N HEMOGLOBIN (test code = HGB) 16.2 g/dL 12-16 H HEMATOCRIT (test code = HCT) 48.5 % 37-47 H MEAN CELL VOLUME (test code = MCV) 90 fL 80-98 N MEAN CELL HGB (test code = MCH) 30.2 pg 27-34 N MEAN CELL HGB CONCENTRATION (test 33.4 g/dL 30.8-34.1 N code = MCHC) RED CELL DISTRIBUTION WIDTH (test 12.6 % 11-16 N code = RDW) PLT (test code = PLT) 229 K/mm3 130-400 N MEAN PLATELET VOLUME (test code = 9.0 fL 8.9-12.1 N MPV) NEUTROPHIL % (test code = NT%) 47.2 % 45-70 N LYMPHOCYTE % (test code = LY%) 37.9 % 20-40 N MONOCYTE % (test code = MO%) 10.3 % 3-10 H EOSINOPHIL % (test code = EO%) 3.4 % 1-5 N BASOPHIL % (test code = BA%) 0.9 % 0.0-1.1 N NEUTROPHIL # (test code = NT#) 5.00 K/mm3 2.00-7.50 N LYMPHOCYTE # (test code = LY#) 4.01 K/mm3 1.50-4.00 H MONOCYTE # (test code = MO#) 1.09 K/mm3 0.2-0.8 H EOSINOPHIL # (test code = EO#) 0.36 K/mm3 0.04-0.4 N BASOPHIL # (test code = BA#) 0.09 K/mm3 0.02-0.10 N MANUAL DIFF REQUIRED (test code = NO MANUAL DIFF MDIFF) NUCLEATED RED BLOOD CELL (test 0 % 0-0 N code = NRBC) - MRI L-SPINE W/O [id number] 09:16:00 Patient Name: BRIANNE CARLISLE Unit No: [id number] EXAMS: CPT CODE: [id number] MRI L-SPINE W/O CONT [id number] DIAGNOSIS: 1. At L1-2 there is no evidence for disc bulge or herniation, bony canal or foraminal stenosis. 2. At L2-3 there is no evidence for disc bulge or herniation, bony canal or foraminalstenosis. 3. At L3-4 there is no evidence for disc bulge or herniation, bony canal or foraminal stenosis. 4. At L4-5 there is 5 mm of recurrent right paracentral disc protrusion indenting the ventral th ecal sac. Mild foraminal narrowing is seen. A left-sided laminectomy is present with decompression of the canal. 5. At L5-S1 there is no evidence for [...] MD CC: Chayo Ribeiro M.D. Technologist: Barbara Villaseñor(R) Transcribed D/ (915) [facility] NAME: BRIANNE CARLISLE [address] [facility] PHYS: Alvaro Freitas MD : 1970 AGE: 48 SEX: [place] [address] LOC: Y.MRI PHONE #: [phone] EXAM DATE: 02/19/2019 STATUS: REG CLI FAX #: [phone] RAD #: [id number] D/C DT PAGE 1 Signed Report Patient Name: BRIANNE CARLISLE Unit No: [id number] EXAMS: CPT CODE: [id number] MRI L-SPINEW/O CONT [id number] (Continued) Orig Print D/T: S: 02/19/2019 (918) [facility] NAME: BRIANNE CARLISLE [address] [facility] PHYS: Alvaro Freitas MD : 1970 AGE: 48 SEX: Pool [place] [id number] LOC: Y.MRI PHONE #: [phone] EXAM DATE: 02/19/2019 STATUS: REG CLI FAX #: [phone] RAD #: [id number] D/C DT PAGE 2 Signed Report
[2022-09-18 14:57] LABS: Urine Blood 2+ (Negative); Urine Glucose Negative (Negative); Urine Protein 2+ (Negative); Urine Specific Gravity 1.025 (1.005-1.030); Urine pH 5.5 (5.0-7.0)
[2022-09-18 15:23] LABS: Protime INR 1.12
[2022-09-18 15:39] LABS: Albumin 3.9 g/dL (3.4-5.0); Bilirubin Total 0.9 mg/dL (0.2-1.0); Potassium 3.8 mmol/L (3.5-5.1); Protein, Total 7.7 g/dL (6.4-8.2)
[2022-09-18 15:53] LABS: Absolute Lymphocytes (CBC) 2.3 K/uL (0.7-4.9); Hematocrit 49.7 % (39.6-49.0); Lymphocytes % 20.8 % (15.3-44.8); MPV 6.9 fL (7.6-11.3)
[2022-09-18] MEDS ORDERED: FENTANYL CITR 100 MCG/2 ML ONE (16:05)
--- NOTE | 2022-09-18 17:08 | RAD REPORT ---
EXAM DESCRIPTION: CT - Head Brain Wo Cont - 09/18/2022 4:37 pm CLINICAL HISTORY: Headache, new or worsening, retro-orbital and posterior location COMPARISON: Head angio dated 09/18/2022 TECHNIQUE: Axial 5 mm thick images of the head were obtained without IV contrast. All CT scans are performed using dose optimization technique as appropriate and may include automated exposure control or mA/KV adjustment according to patient size. FINDINGS: No intracranial hemorrhage, mass, edema or shift of mid-line structures. No acute infarcti on changes seen. No abnormal extra-axial fluid collections. Ventricles are normal. Dense for age shantel rial tree calcifications. Mastoid air cells and visualized portions of the paranasal sinuses are clear. No acute bony findings. IMPRESSION: Negative non-contrast CT head examination for acute finding.
[2022-09-18] MEDS ORDERED: HYDROMORPHONE HCL 0.5 MG/0.5 ML INJ ONE ×2 (17:28→18:34)
[2022-09-18] MEDS ORDERED: METOCLOPRAMIDE 10 MG/2mL INJ ONE (17:28)
[2022-09-18] MEDS ORDERED: NA CHLORIDE 0.9% 1,000 ML ONE (17:28)
--- NOTE | 2022-09-18 17:31 | RAD REPORT ---
EXAM DESCRIPTION: CT - Head angio - 09/18/2022 4:37 pm CLINICAL HISTORY: headache, retro-orbital and posterior in location, right leg weakness TECHNIQUE: During dynamic enhancement using nonionic IV contrast, axial 1 millimeter thick images of the head were obtained. Sagittal and axial reconstruction images were generated using MIP technique and reviewed. All CT scans are performed using dose optimization technique as appropriate and may include automated exposure control or mA/KV adjustment according to patient size. COMPARISON: CT head same date FINDINGS: No aneurysm or vascular malformation identified. Major venous sinuses are patent. No stenosis, named branch occlusion, vasculitis or other significant vascular finding identifiable. P atient does have calcifications along the marmolejo of the cavernous portions of each internal carotid ar mena. No significant luminal narrowing is identifiable. Right vertebral artery is dominant as a jesisca l anatomic variant. IMPRESSION: No aneurysm, vascular malformation or other finding to explain headache and leg weaknes s findings. Atherosclerotic wall calcifications in the cavernous portions of each internal carotid artery. Wall c alcifications do not cause any significant luminal narrowing.
[2022-09-18 18:33] LABS: SARS-COV-2 RT PCR NEGATIVE (NEGATIVE)
--- NOTE | 2022-09-18 18:56 | ER ---
Nurse's Notes [facility] Name: Joo Hi Age: 52 yrs Sex: Male : 1970 Arrival Date: 09/18/2022 Time: 13:55 Bed 25 Private MD: Jacob De La Torre T Diagnosis: Headache;Weakness-Right lower extremity Presentation: 09/18 14:21 Chief complaint: Patient states: headache between his eyes radiating to back of head iw since Sunday, then Sunday he noticed his legs were weak, right worse than left, went to PCP and was told to come to ER for MRI. Coronavirus screen: At this time, the client does not indicate any symptoms associated with coronavirus-19. Ebola Screen: Patient negative for fever greater than or equal to 101.5 degrees Fahrenheit, and additional compatible Ebola Virus Disease symptoms Patient denies exposure to infectious person. Patient denies travel to an Ebola-affected area in the 21 days before illness onset. No symptoms or risks identified at this time. 14:21 Method Of Arrival: Wheelchair iw 14:21 Acuity: RAJESH 2 iw 14:22 Onset of symptoms was September 16, 2022. iw 14:22 Initial Sepsis Screen: Does the patient meet any 2 criteria? No. Patient's initial iw sepsis screen is negative. Does the patient have a suspected source of infection? No. Patient's initial sepsis screen is negative. Risk Assessment: Do you want to hurt yourself or someone else? Patient reports no desire to harm self or others. Historical: - Allergies: 14:23 No Known Allergies; iw - Home Meds: 14:23 Piroxicam Oral [Active]; Bupropion Oral [Active]; Crestor oral [Active]; iw - PMHx: 14:23 Arthritis; iw - PSHx: 14:23 fusion back; left leg; cardiac stent; nose; iw - Immunization history:: Adult Immunizations. - Social history:: Smoking status: Patient reports the use of cigarette tobacco products, smokes one pack cigarettes per day. Patient/guardian denies using alcohol. Screenin:04 [facility] ED Fall Risk Assessment (Adult) History of falling in the last 3 months, ld1 including since admission No falls in past 3 months (0 pts). Abuse screen: Denies threats or abuse. Denies injuries from another. Nutritional screening: No deficits noted. Tuberculosis screening: No symptoms or risk factors identified. Assessment: 14:30 Reassessment: Patient appears in no apparent distress at this time. Patient and/or ld1 family updated on plan of care and expected duration. Pain level reassessed. Pt complaining of severe headache - notified ERP. See MAR for orders. 15:04 General: Appears in no apparent distress. comfortable, Behavior is calm, cooperative, ld1 appropriate for age. Pain: Complains of pain in right side of the back of head and left side of the back of head and forehead Pain does not radiate. Pain currently is 10 out of 10 on a pain scale. Quality of pain is described as pressure, throbbing, Pain began 2-3 days ago. Neuro: Level of Consciousness is awake, alert, obeys commands, Oriented to person, place, time, situation. Cardiovascular: Capillary refill < 3 seconds Patient's skin is warm and dry. Rhythm is sinus rhythm. Respiratory: Airway is patent Respiratory effort is even, unlabored. GI: Abdomen is round non-distended. : No signs and/or symptoms were reported regarding the genitourinary system. EENT: No signs and/or symptoms were reported regarding the EENT system. Derm: No signs and/or symptoms reported regarding the dermatologic system. Musculoskeletal: No signs and/or symptoms reported regarding the musculoskeletal system. 16:00 Reassessment: No changes from previously documented assessment. Patient and/or family ld1 updated on plan of care and expected duration. Pain level reassessed. Patient states symptoms have not improved. 16:45 Reassessment: Patient appears in no apparent distress at this time. No changes from ld1 previously documented assessment. Patient and/or family updated on plan of care and expected duration. Pain level reassessed. Pt c/o pain. Notified ERP. See MAR for orders. 18:29 Reassessment: Patient appears in no apparent distress at this time. No changes from ld1 previously documented assessment. Pt reports relief of medicine has gone away. Pain is starting to come back. Notified ERP. See MAR for orders. 18:37 Reassessment: received report from BASSEM Noriega. [email or web address] 18:53 Reassessment: pt able to ambulate down the lee and back. Pt states "the leg brace mb9 feels like It's holding everything together and I don't feel like my knee is going to buckle". Vital Signs: 14:22 BP 139 / 95; Pulse 80; Resp 16; Pulse Ox 96% on R/A; Weight 136.08 kg; Height 6 ft. 1 iw in. (185.42 cm); Pain 10/10; 15:04 BP 123 / 68; Pulse 84; Resp 18; Temp 97.9(O); Pulse Ox 97% on R/A; Pain 10/10; ld1 16:00 BP 136 / 88; Pulse 78; Resp 18; Pulse Ox 100% on R/A; Pain 10/10; ld1 16:45 BP 150 / 87; Pulse 75; Resp 19; Pulse Ox 99% on R/A; Pain 10/10; ld1 18:29 BP 134 / 86; Pulse 79; Resp 18; Pulse Ox 98% on R/A; Pain 8/10; ld1 19:00 BP 157 / 79; Pulse 74; Resp 20; Pulse Ox 100% ; mb9 14:22 Body Mass Index 39.58 (136.08 kg, 185.42 cm) iw Butler Coma Score: 14:37 Eye Response: spontaneous(4). Verbal Response: oriented(5). Motor Response: obeys snw commands(6). Total: 15. 14:40 Eye Response: spontaneous(4). Verbal Response: oriented(5). Motor Response: obeys snw commands(6). Total: 15. NIH Stroke Scale Scores: 14:37 NIHSS Score: 5 snw ED Course: 13:55 Patient arrived in ED. rg4 13:55 Jacob De La Torre MD is Private Physician. rg4 14:05 Lisa Truong FNP-C is [facility]. snw 14:05 Elian Suarez DO is Attending Physician. snw 14:14 Leann Crowe, BASSEM is Primary Nurse. ld1 14:22 Triage completed. iw 14:24 Arm band placed on. iw 15:04 Patient has correct armband on for positive identification. Placed in gown. Bed in low ld1 position. Call light in reach. Side rails up X2. work adjustment instructor on. Pulse ox on. NIBP on. Door closed. Noise minimized. Warm blanket given. 15:04 Inserted saline lock: 20 gauge in left antecubital area, using aseptic technique. Blood ld1 collected. 15:04 No provider procedures requiring assistance completed. ld1 16:39 CT Head Brain wo Cont In Process Unspecified. EDMS 16:39 CT Head Angio In Process Unspecified. EDMS 19:00 IV discontinued, intact, bleeding controlled, No redness/swelling at site. Pressure mb9 dressing applied. Administered Medications: 16:11 Drug: fentaNYL (PF) 25 mcg Route: IVP; Site: left antecubital; mb9 16:40 Follow up: Response: No adverse reaction; Pain is unchanged, physician notified ld1 17:32 Drug: Reglan (metoCLOPramide) 5 mg Route: IVP; Site: left antecubital; ld1 17:49 Follow up: Response: No adverse reaction; Pain is decreased ld1 17:33 Drug: NS 0.9% 1000 ml Route: IV; Rate: 125 ml/hr; Site: left antecubital; ld1 17:33 Drug: Dilaudid (HYDROmorphone) 0.5 mg Route: IVP; Site: left antecubital; ld1 17:49 Follow up: Response: No adverse reaction; Pain is decreased ld1 18:37 Drug: Dilaudid (HYDROmorphone) 0.5 mg Route: IVP; Site: left antecubital; ld1 Medication: 15:04 VIS not applicable for this client. ld1 Outcome: 18:55 Discharge ordered by . snmaricel 19:01 Discharged to home ambulatory. mb9 19:01 Condition: stable 19:01 Discharge instructions given to patient, Instructed on discharge instructions, follow up and referral plans. Demonstrated understanding of instructions, follow-up care, medications, Prescriptions given X 2. 19:09 Patient left the ED. mb9 NIH Stroke Scale - NIH Stroke Score Date: 09/18/2022 Time: 14:37 Total Score = 5 1a. Level of Consciousness (LOC) - 0(Alert) 1b. Level of Consciousness (LOC) (Month \\T\\ Age) - 0(Both) 1c. LOC Commands (Open \\T\\ Closes Eyes/Marble Mechanic Helper) - 0(Both) 2. Best Gaze (Lateral Gaze Paresis) - 0(Normal) 3. Visual Field Loss - 0(No visual loss) 4. Facial Palsy - 0(Normal) 5a. Left Arm: Motor (10-second hold) - 0(No drift) 5b. Right Arm: Motor (10-second hold) - 0(No drift) 6a. Left Leg: Motor (5-second hold - always test supine) - 0(No drift) 6b. Right Leg: Motor (5-second hold - always test supine) - 3(No effort against gravity) 7. Limb Ataxia (finger/nose \\T\\ heel/dempsey - test with eyes open) - 1(Present in one limb) 8. Sensory Loss (pinprick arms/legs/face) - 1(Mild to moderate loss) 9. Best Language: Aphasia (description/naming/reading) - 0(No aphasia) 10. Dysarthria (speech clarity - read or repeat words) - 0(Normal) 11. Extinction and Inattention (visual/tactile/auditory/spatial/personal) - 0(No abnormality) Initials: snw Signatures: Dispatcher [employer] EDMS Lisa Truong, FULL STACK JAVA DEVELOPER-C FULL STACK JAVA DEVELOPER-Csnw Shannan Ballard, RN Xin Kasper rg4 Leann Crowe RN RN ld1 Kayy Booker RN RN mb9
--- NOTE | 2022-09-18 18:56 | EDPHYS ---
Physician Documentation [facility] Name: Joo Hi Age: 52 yrs Sex: Male : 1970 Arrival Date: 09/18/2022 Time: 13:55 Bed 25 Private MD: Jacob De La Torre T ED Physician Elian Suarez HPI: 09/18 14:45 This 52 yrs old Male presents to ER via Wheelchair with complaints of Headache, snw Weakness. 14:45 The patient complains of pain to the forehead, left side of the back of head and right snw side of the back of head. The patient describes the headache as aching, constant. Onset: The symptoms/episode began/occurred suddenly, 4 day(s) ago, and became persistent. Associated signs and symptoms: Pertinent positives: malaise, weakness. Severity of symptoms: At its worst the pain was moderate, severe. Headache History: Denies prior headaches. The patient has not experienced similar symptoms in the past. pt has had a spinal fusion, neurosurgeon, Dr. Ballard, told pt to come to ED. Historical: - Allergies: 14:23 No Known Allergies; iw - Home Meds: 14:23 Piroxicam Oral [Active]; Bupropion Oral [Active]; Crestor oral [Active]; iw - PMHx: 14:23 Arthritis; iw - PSHx: 14:23 fusion back; left leg; cardiac stent; nose; iw - Immunization history:: Adult Immunizations. - Social history:: Smoking status: Patient reports the use of cigarette tobacco products, smokes one pack cigarettes per day. Patient/guardian denies using alcohol. ROS: 14:40 Constitutional: Negative for fever, chills, and weight loss, Eyes: Negative for injury, snw pain, redness, and discharge, ENT: Negative for injury, pain, and discharge. 14:40 Neuro: Positive for headache, weakness. Exam: 14:37 Constitutional: This is a well developed, well nourished patient who is awake, alert, snw and in no acute distress. Head/Face: Normocephalic, atraumatic. Eyes: Pupils equal round and reactive to light, extra-ocular motions intact. Lids and lashes normal. Conjunctiva and sclera are non-icteric and not injected. Cornea within normal limits. Periorbital areas with no swelling, redness, or edema. ENT: Nares patent. No nasal discharge, no septal abnormalities noted. Tympanic membranes are normal and external auditory canals are clear. Oropharynx with no redness, swelling, or masses, exudates, or evidence of obstruction, uvula midline. Mucous membranes moist. Neck: Trachea midline, no thyromegaly or masses palpated, and no cervical lymphadenopathy. Supple, full range of motion without nuchal rigidity, or vertebral point tenderness. No Meningismus. Chest/axilla: Normal chest wall appearance and motion. Nontender with no deformity. No lesions are appreciated. Cardiovascular: Regular rate and rhythm with a normal S1 and S2. No gallops, murmurs, or rubs. Normal PMI, no JVD. No pulse deficits. Respiratory: Lungs have equal breath sounds bilaterally, clear to auscultation and percussion. No rales, rhonchi or wheezes noted. No increased work of breathing, no retractions or nasal flaring. Abdomen/GI: Soft, non-tender, with normal bowel sounds. No distension or tympany. No guarding or rebound. No evidence of tenderness throughout. Back: No spinal tenderness. No costovertebral tenderness. Full range of motion. Skin: Warm, dry with normal turgor. Normal color with no rashes, no lesions, and no evidence of cellulitis. 14:37 Musculoskeletal/extremity: Extremities: left lower ext numb, right lower ext weak but hypersensitive. 14:37 Neuro: Orientation: is normal, Mentation: is normal, Memory: is normal, Gait: not tested. Vital Signs: 14:22 BP 139 / 95; Pulse 80; Resp 16; Pulse Ox 96% on R/A; Weight 136.08 kg; Height 6 ft. 1 iw in. (185.42 cm); Pain 10/10; 15:04 BP 123 / 68; Pulse 84; Resp 18; Temp 97.9(O); Pulse Ox 97% on R/A; Pain 10/10; ld1 16:00 BP 136 / 88; Pulse 78; Resp 18; Pulse Ox 100% on R/A; Pain 10/10; ld1 16:45 BP 150 / 87; Pulse 75; Resp 19; Pulse Ox 99% on R/A; Pain 10/10; ld1 18:29 BP 134 / 86; Pulse 79; Resp 18; Pulse Ox 98% on R/A; Pain 8/10; ld1 19:00 BP 157 / 79; Pulse 74; Resp 20; Pulse Ox 100% ; mb9 14:22 Body Mass Index 39.58 (136.08 kg, 185.42 cm) iw NIH Stroke Scale Scores: 14:37 NIHSS Score: 5 snw Elly Coma Score: 14:37 Eye Response: spontaneous(4). Verbal Response: oriented(5). Motor Response: obeys snw commands(6). Total: 15. 14:40 Eye Response: spontaneous(4). Verbal Response: oriented(5). Motor Response: obeys snw commands(6). Total: 15. MDM: 14:37 Patient medically screened. snw 14:40 Differential diagnosis: cerebral vascular accident, neoplasm, sinusitis, subarachnoid snw bleed, spinal epidural abscess. 14:45 Data reviewed: vital signs, nurses notes. snw 18:27 Test considered but Not performed: Other Details MRI not available, awaiting return snw phone call from Pt's Neurosurgeon, Dr. Alvaro Ribeiro. . Counseling: I had a detailed discussion with the patient and/or guardian regarding: the historical points, exam findings, and any diagnostic results supporting the discharge/admit diagnosis, the presence of at least one elevated blood pressure reading (>120/80) during this emergency department visit, lab results, radiology results. 18:45 Response to treatment: the patient's symptoms have markedly improved after treatment. snw Admission orders: after a detailed discussion of the patient's condition and case, the admit orders are written by me. Special discussion: I have referred the patient to see his PCP for further evaluation of high blood pressure. Based on the history and exam findings, there is no indication for further emergent testing or inpatient evaluation. I discussed with the patient/guardian the need to see the back specialist for further evaluation of the symptoms. I discussed with the patient/guardian the need to see the primary care provider for further evaluation of the symptoms. ED course: Pt able to move right lower extremity much more freely post reglan, fluids, and dilaudid. Pt states he is nervous to try to stand as knee just gives out. We will attempt knee immobilizer and ambulation for follow up with neurosurgery . 18:54 ED course: able to ambulate with knee immobilizer and will call neurosurg in the am. 09/18 14:36 Order name: Blood Culture Adult (2) 09/18 14:36 Order name: CBC with Diff; Complete Time: 16:40 09/18 14:36 Order name: CMP; Complete Time: 15:41 09/18 14:36 Order name: Lactate w/ 2H reflex if indic.; Complete Time: 15:47 09/18 14:36 Order name: Protime (+inr); Complete Time: 15:31 09/18 14:36 Order name: Ptt, Activated; Complete Time: 15:31 09/18 14:36 Order name: CT Head Brain wo Cont; Complete Time: 17:15 09/18 14:36 Order name: CT Head Angio; Complete Time: 17:37 09/18 14:36 Order name: Urine Culture 09/18 14:58 Order name: Urine Dipstick-Ancillary; Complete Time: 15:00 [facility] 09/18 15:10 Order name: Glucose, Ancillary Testing; Complete Time: 15:14 [facility] 09/18 17:44 Order name: COVID-19/FLU A+B; Complete Time: 18:33 09/18 14:36 Order name: EKG; Complete Time: 14:38 09/18 14:36 Order name: Accucheck; Complete Time: 15:04 09/18 14:36 Order name: Cardiac monitoring; Complete Time: 15:04 09/18 14:36 Order name: EKG - Nurse/Tech; Complete Time: 15:14 09/18 14:36 Order name: IV Saline Lock - Large Bore; Complete Time: 15:04 09/18 14:36 Order name: Labs collected and sent; Complete Time: 15:04 09/18 14:36 Order name: O2 Per Protocol; Complete Time: 14:39 09/18 14:36 Order name: O2 Sat Monitoring; Complete Time: 14:39 09/18 14:36 Order name: Vital Signs; Complete Time: 15:06 09/18 18:30 Order name: Knee Immobilizer: right ; Complete Time: 18:37 snw EC:15 Rate is 71 beats/min. Rhythm is regular. T waves are Normal. No ST changes noted. snw Clinical impression: NSR w/ Non-specific ST/T Changes and occasional PVCs. Interpreted by me. Reviewed by me. Administered Medications: 16:11 Drug: fentaNYL (PF) 25 mcg Route: IVP; Site: left antecubital; mb9 16:40 Follow up: Response: No adverse reaction; Pain is unchanged, physician notified ld1 17:32 Drug: Reglan (metoCLOPramide) 5 mg Route: IVP; Site: left antecubital; ld1 17:49 Follow up: Response: No adverse reaction; Pain is decreased ld1 17:33 Drug: NS 0.9% 1000 ml Route: IV; Rate: 125 ml/hr; Site: left antecubital; ld1 17:33 Drug: Dilaudid (HYDROmorphone) 0.5 mg Route: IVP; Site: left antecubital; ld1 17:49 Follow up: Response: No adverse reaction; Pain is decreased ld1 18:37 Drug: Dilaudid (HYDROmorphone) 0.5 mg Route: IVP; Site: left antecubital; ld1 Disposition: 19:04 Co-signature as Attending Physician, Elian LIRIANO was immediately available on-site ms3 in the Emergency Department for consultation in the care of the patient. Disposition Summary: 09/18/22 18:55 Discharge Ordered Location: Home snw Condition: Stable snw Diagnosis - Headache snw - Weakness - Right lower extremity snw Followup: snw - With: Private Physician - When: Tomorrow - Reason: Recheck today's complaints, Continuance of care, Re-evaluation by your physician Discharge Instructions: - Discharge Summary Sheet snw - General Headache Without Cause snw - Weakness snw Forms: - Medication Reconciliation Form snw - Thank You Letter snw - Antibiotic Education snw - Prescription Opioid Use snw Prescriptions: - orphenadrine citrate 100 mg Oral Tablet Sustained Release - take 1 tablet by ORAL route 2 times per day As needed; 20 tablet; Refills: 0, snw Product Selection Permitted - promethazine 25 mg Oral Tablet - take 1 tablet by ORAL route every 6 hours As needed; 20 tablet; Refills: 0, snw Product Selection Permitted NIH Stroke Scale - NIH Stroke Score Date: 09/18/2022 Time: 14:37 Total Score = 5 1a. Level of Consciousness (LOC) - 0(Alert) 1b. Level of Consciousness (LOC) (Month \T\ Age) - 0(Both) 1c. LOC Commands (Open \T\ Closes Eyes/Rate Marker) - 0(Both) 2. Best Gaze (Lateral Gaze Paresis) - 0(Normal) 3. Visual Field Loss - 0(No visual loss) 4. Facial Palsy - 0(Normal) 5a. Left Arm: Motor (10-second hold) - 0(No drift) 5b. Right Arm: Motor (10-second hold) - 0(No drift) 6a. Left Leg: Motor (5-second hold - always test supine) - 0(No drift) 6b. Right Leg: Motor (5-second hold - always test supine) - 3(No effort against gravity) 7. Limb Ataxia (finger/nose \T\ heel/dempsey - test with eyes open) - 1(Present in one limb) 8. Sensory Loss (pinprick arms/legs/face) - 1(Mild to moderate loss) 9. Best Language: Aphasia (description/naming/reading) - 0(No aphasia) 10. Dysarthria (speech clarity - read or repeat words) - 0(Normal) 11. Extinction and Inattention (visual/tactile/auditory/spatial/personal) - 0(No abnormality) Initials: snw Signatures: Dispatcher [employer] EDLisa Eubanks, BILLING REP-C BILLING REP-Csnw Shannan Ballard RN RN iw Elian Suarez DO DO ms3 Leann Crowe RN RN ld1 Kayy Booker, RN RN mb9
[2022-09-18 21:14] VITALS: TEMP 97.9
[2022-09-18 21:20] VITALS: BP 157/79; O2SAT 100
--- NOTE | 2022-09-19 12:27 | EKG ---
Test Date: 2022-09-18 Test Time: 15:12:15 Coffee Bar Attendant: MARTIN MEASUREMENT RESULTS: Intervals: Rate: 71 KS: 158 QRSD: 86 QT: 390 QTc: 423 [place]: P: 56 KS: 158 QRS: 56 T: 54 INTERPRETIVE STATEMENTS: Sinus rhythm with occasional premature ventricular complexes Possible Left atrial enlargement Borderline ECG Compared to ECG 12/03/2014 06:33:22 Ventricular premature complex(es) now present Electronically Signed On 09-19-22 12:25:08 MEDICAL ANTHROPOLOGY DIRECTOR by Ricardo Coates
== END 2022-09-18 19:09 | disposition home or self-care (01) ==
LOC: ER 13:50
DX: R51.9 Headache, unspecified (principal); R53.1 Weakness; F17.210 Nicotine dependence, cigarettes, uncomplicated; Z20.822 Contact with and (suspected) exposure to COVID-19; Z95.818 Presence of other cardiac implants and grafts
CPT/HCPCS: 93005; 87040 ×2; 87088; 85025; 87086; 36415; 85610; 82947; 83605; 85730; 81003; 80053; 0240U; 70450; 70496; 96375; 96374; 99284; Q9967; J2765; J3010; J1170 ×2; J7030

== ENCOUNTER 2023-11-02 07:10 | Day surgery (SDC) | payer BC, OTHER ==
[2023-11-01 09:20] LABS: Absolute Basophils 0.1 K/uL (0-0.5); Absolute Lymphocytes (CBC) 2.2 K/uL (0.7-4.9); Hematocrit 46.8 % (39.6-49.0); Lymphocytes % 29.6 % (15.3-44.8); MCV 92.3 fL (80-100); MPV 7.8 fL (7.6-11.3); Platelets 185 thou/uL (152-406); RBC Red Blood Cell Count 5.07 M/uL (4.33-5.43)
--- NOTE | 2023-11-01 14:13 | EKG ---
Test Date: 2023-11-01 Test Time: 10:01:15 Maintenance Chief: NAS MEASUREMENT RESULTS: Intervals: Rate: 58 IA: 152 QRSD: 94 QT: 418 QTc: 410 [place]: P: 57 IA: 152 QRS: 61 T: 36 INTERPRETIVE STATEMENTS: Sinus bradycardia Otherwise normal ECG Compared to ECG 09/18/2022 15:12:15 Sinus rhythm no longer present Ventricular premature complex(es) no longer present Electronically Signed On 11-01-23 14:12:23 UPPER EXTREMITY SURGEON by Ricardo Coates
[2023-11-02] MEDS: Ringers Lactate 1,000 ML IV ONE (07:30)
[2023-11-02] MEDS ORDERED: LIDOCAINE 1% MPF 5 ML VIAL ONE (08:15)
[2023-11-02] MEDS ORDERED: propofoL 200 MG/20 ML VIAL IV ONE (08:15)
[2023-11-02 09:38] VITALS: BP 126/72; TEMP 97.1; O2SAT 96
== END 2023-11-02 09:32 | disposition home or self-care (01) ==
LOC: OR 07:10
PROVIDERS: ATTEND Surgery
PROC: 0DBL8ZX Excision of Transverse Colon, Via Natural or Artificial Opening Endoscopic, Diagnostic (ICD-10-PCS; principal; 2023-11-02 08:45)
DX: Z12.11 Encounter for screening for malignant neoplasm of colon (principal); N42.9 Disorder of prostate, unspecified; K64.8 Other hemorrhoids; K57.30 Diverticulosis of large intestine without perforation or abscess without bleeding
CPT/HCPCS: 45380; 93005; 85025; 80048; 36415; 88304; J2704; J2001; J7120; 88305

== ENCOUNTER 2024-06-20 06:49 | Day surgery (SDC) | payer OTHER ==
[2024-06-19 12:42] LABS: Absolute Basophils 0.1 K/uL (0-0.5); Absolute Eosinophils 0.2 K/uL (0-0.5); Absolute Lymphocytes (CBC) 3.1 K/uL (0.7-4.9); Absolute Monocytes 0.8 K/uL (0.1-1.3); Absolute Neutrophil 8.1 K/uL (1.8-8.0); Basophils % 0.5 % (0-1.3); Eosinophils % 1.8 % (0-4.4); Hemoglobin 16.3 g/dL (13.6-17.9); Lymphocytes % 25.3 % (15.3-44.8); MCH 31.1 pg (27.0-35.0); MCV 91.4 fL (80-100); MPV 7.8 fL (7.6-11.3); Monocytes % 6.8 % (3.3-12.3); Neutrophils % 65.6 % (41.7-73.7); Platelets 159 thou/uL (152-406); RBC Red Blood Cell Count 5.25 M/uL (4.33-5.43); Red Cell Distribution Width 12.9 % (12.1-15.2)
[2024-06-19 12:56] LABS: Anion Gap 4.9 mEq/L (5.0-15.0); Potassium 3.9 mEq/L (3.5-5.1)
[2024-06-20] MEDS: Ringers Lactate 1,000 ML IV ONE (07:20)
[2024-06-20] MEDS ORDERED: FENTANYL CITR 100 MCG/2 ML ONE (07:53)
[2024-06-20] MEDS ORDERED: ONDANSETRON 4 MG/2 ML VIAL ONE (07:53)
[2024-06-20] MEDS ORDERED: propofoL 200 MG/20 ML VIAL IV ONE (07:53)
[2024-06-20] MEDS ORDERED: LIDOCAINE 2% MPF 5 ML VIAL ONE (07:53)
[2024-06-20] MEDS: CEFAZOLIN SODIUM 2 GM/VIAL ONE (08:05)
[2024-06-20] MEDS: LIDOCAINE HCL/EPINEPHRINE 20 ML MDV ONE (08:20)
--- NOTE | 2024-06-20 08:39 | P.OP ---
Preoperative diagnosis: RIGHT cheek mass, LEFT thigh skin lesion, RIGHT inner thigh skin tags Postoperative diagnosis: RIGHT cheek mass, LEFT thigh skin lesion, RIGHT inner thigh skin tags Primary procedure: Excision of RIGHT cheek mass, LEFT thigh skin lesion, Secondary procedure: Excision of RIGHT inner thigh skin tags x 3 Anesthesia: GETA + Local Estimated blood loss: <2cc Specimen: RIGHT cheek mass, LEFT thigh skin lesion, RIGHT inner thigh skin tags Findings: cystic mass of right face~ 1cm, LEFT thigh skin lesion ~ 1cm Complications: None Transferred to: Recovery Room Condition: Good
[2024-06-20] MEDS: HYDROMORPHONE HCL 1 MG/ML INJ ONE ×2 (08:50→09:10)
--- NOTE | 2024-06-20 09:34 | OP ---
Date of Procedure: 06/20/2024 Surgeon: Dominick Maldonado MD, Preoperative Diagnoses: Right cheek mass, left thigh skin lesion, and right inner thigh skin tags. Postoperative Diagnoses: Right cheek mass, left thigh skin lesion, and right inner thigh skin tags. Procedure Performed: Excision of right cheek mass, left thigh skin lesions, and right inner thigh sk in tags. Anesthesia: General endotracheal plus local, 1% lidocaine with epinephrine. Estimated Blood Loss: 2 cc. Specimens: Right cheek mass, left thigh skin lesion, right inner thigh skin tag x3. Findings: Cystic mass of the right face approximately 1 cm in size, left thigh skin lesion approxima tely 1 cm, and 3 skin tags of the right inner thigh. Complications: None. Disposition: The patient was transferred to recovery room in good condition. Procedure In Detail: After informed consent was obtained, patient was brought to the operating room, prepped and draped in the usual sterile fashion. After adequate anesthesia was achieved, anesthetiz ed the area of the right face down to the subcutaneous tissues, made an elliptical incision circumfer entially around a palpable cystic mass. This was removed in its entirety using a combination of blun t dissection and minimal electrocautery and sent off for pathologic examination. The area was copiou sly irrigated and closed with interrupted 4-0 Prolene sutures and a sterile dressing was placed over top. I then turned my attention to the right inner thigh skin tags, which were removed using a flexi ble DermaBlade after appropriately anesthetizing the skin and a sterile dressing was placed on the to p of this once they were removed. At this point, I turned my attention to the left outer thigh skin lesion at which point it was injected with lidocaine without epinephrine as well and used a flexible DermaBlade to remove the skin lesion, sent off for pathologic examination. Sterile dressing was plac ed over top. The patient tolerated the procedure without incident or complication and transferred to PACU in good condition. All counts were correct at the end of the case. LEILANI/YEISON Voice ID: [id number] Report ID: [id number]
[2024-06-20 09:35] VITALS: TEMP 97.4
[2024-06-20 10:11] VITALS: BP 143/65; O2SAT 98
--- NOTE | 2024-06-20 14:15 | EKG ---
Test Date: 2024-06-19 Test Time: 12:41:06 Manager Managed Care: SANTHOSH MEASUREMENT RESULTS: Intervals: Rate: 61 DC: 154 QRSD: 100 QT: 420 QTc: 422 [place]: P: 66 DC: 154 QRS: 67 T: 41 INTERPRETIVE STATEMENTS: Normal sinus rhythm Normal ECG Compared to ECG 11/01/2023 10:01:15 Sinus bradycardia no longer present Electronically Signed On 06-20-24 14:12:28 CDT by Donovan Ray
== END 2024-06-20 10:47 | disposition home or self-care (01) ==
LOC: OR 06:49
PROVIDERS: ATTEND Surgery
PROC: 0HB1XZZ Excision of Face Skin, External Approach (ICD-10-PCS; 2024-06-20)
PROC: 0HBHXZZ Excision of Right Upper Leg Skin, External Approach (ICD-10-PCS; 2024-06-20)
PROC: 0HBJXZZ Excision of Left Upper Leg Skin, External Approach (ICD-10-PCS; principal; 2024-06-20 08:00)
DX: C44.310 Basal cell carcinoma of skin of unspecified parts of face (principal); D04.72 Carcinoma in situ of skin of left lower limb, including hip; L91.8 Other hypertrophic disorders of the skin
CPT/HCPCS: 36415; 80048; 85025; 88304; 88305; 93005; J1171; J2003; J2405; J2704; J3010; J7120